=== PATIENT | female | born 1975 | race Caucasian/White ===

== ENCOUNTER 2016-12-27 06:22 | Day surgery (SDC) | payer BC ==
[~2016-12-27 06:22] MED LIST: Lactated Ringers 1,000 ML IV SCH
--- NOTE | 2016-12-27 07:03 | PCM.PREANE ---
Preanesthetic Assessment - Anesthesia/Transfusion/Family Hx Anesthesia History: Prior Anesthesia Without Reaction Transfusion History: No Prior Transfusion(s) - Physical Assessment O2 Sat by Pulse Oximetry: 97 Respiratory Rate: 16 Vital Signs: Last Vital Signs Temp 36.3 C 12/27/16 06:43 Pulse 63 12/27/16 06:43 Resp 16 12/27/16 06:43 BP 115/65 12/27/16 06:43 Pulse Ox 97 12/27/16 06:43 Height: 1.65 m Weight: 87.09 kg - Lab Values: Laboratory Last Values Urine HCG, Qual NEGATIVE (NEGATIVE) 12/27/16 06:23 - Allergies Allergies/Adverse Reactions: Allergies Allergy/AdvReac Type Severity Reaction Status Date / Time NSAIDS (Non-Steroidal Allergy gastric Verified 12/25/16 09:31 Anti-Inflamma bypass surgery bee stings Allergy Anaphylactic Uncoded 12/24/16 13:58 Shock PreAnesthesia Questionnaire HEENT History: Reports: Other (see below) Other HEENT History: wears glasses Respiratory History: Reports: Asthma Other Respiratory History: sports induced asthma Gastrointestinal History: Reports: GERD, Irritable bowel syndrome Genitourinary History: Reports: None, Renal calculus Other Genitourinary History: hx kidney stones 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: Musculoskeletal History: Reports: Osteoarthritis Psychiatric History: Reports: Anxiety, Depression Endocrine/Metabolic History: Reports: Obesity/BMI 30+ Dermatologic History: Reports: Psoriasis - Past Surgical History Head Surgeries/Procedures: Reports: None HEENT Surgical History: Reports: Myringotomy w tube(s) GI Surgical History: Reports: Bariatric procedure, Cholecystectomy, EGD Female Surgical History: Reports: Cystectomy (left overian cystectomy age 14) Musculoskeletal Surgical History: Reports: Arthroscopic knee, Knee replacement ( left knee TKR) - SUBSTANCE USE Smoking Status *Q: Former Smoker (quit ') Tobacco Use Within Last Twelve Months: No Recreational Drug Use History: No - HOME MEDS Home Medications: Home Meds Albuterol [Ventolin HFA] 2 puff INH ASDIRECTED PRN 12/24/16 [History] Calcium Carbonate/Vitamin D3 [Calcium 600 + Vit D 400 Softgl] 1 tab PO DAILY [History] Clobetasol [Clobetasol 0.05%] 1 applic TOP ASDIRECTED PRN 12/24/16 [History] DULoxetine [Cymbalta] 60 mg PO DAILY 12/24/16 [History] Diclofenac Sodium [Voltaren 1% Gel] 1 applic TOP ASDIRECTED PRN 12/24/16 [ History] Docusate Sodium [Colace] 1 tab PO BID PRN 12/24/16 [History] EPINEPHrine [Epipen 2-Dennis] 1 injection SUBCUT ASDIRECTED PRN 12/24/16 [History] Gabapentin [Neurontin] 900 tab PO BEDTIME 12/24/16 [History] Gluc 2KCl/Chondr/Sabine Hy/Hy Ac [Glucosamine & Chondroitin Cap] 1 tab PO ASDIRECTED 12/24/16 [History] Hydrocodone/Acetaminophen [Hydrocodon-Acetaminophen 5-325] 1 tab PO ASDIRECTED PRN 12/24/16 [History] Loteprednol Etabonate [Lotemax] 1 applic EYEBOTH ASDIRECTED PRN 12/24/16 [ History] Metoclopramide HCl 5 mg PO TID 12/24/16 [History] Multivitamin with Minerals [Hair, Skin and Nails] 1 tab PO DAILY 12/24/16 [ History] Omeprazole 20 mg PO DAILY 12/24/16 [History] Vitamin B Complex/Folic Acid [Super B Maxi Complex Caplet] 1 tab PO DAILY [History] buPROPion [Wellbutrin XL] 1 tab PO DAILY 12/24/16 [History] traMADol HCl [Tramadol HCl] 1 tab PO ASDIRECTED PRN 12/24/16 [History] - CURRENT (IN HOUSE) MEDS Current Meds: Current Medications Lactated Ringer's (Ringers, Lactated) 1,000 mls @ 125 mls/hr IV ASDIRECTED OTILIA Last Admin: 12/27/16 06:58 Dose: 125 mls/hr Preanesthetic Assessment - ANESTHESIA/TRANSFUSION/FAMILY HX Anesthesia/Transfusion History: Prior Anesthesia Type of Anesthesia Reaction: Denies: Allergy, Anesthesia Awareness, Excessive Somnolence, Excessive Nausea/Vomiting, Excessive Itching, Excessive Shivering, Malignant Hyperthermia, Malignant Hyperthermia, Family History, Pseudocholinesterase Deficiency, Pseudocholinesterase Deficiency, Family History of, Urinary Retention, Unknown, Other (see below) Family History of Anesthesia Reaction: No Other Intubation History Comment: no known problems - REVIEW OF SYSTEMS Constitutional: Reports: no symptoms 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 Respiratory: Reports: no symptoms Cardiovascular: Reports: no symptoms GI: Reports: no symptoms Other: Reports: None - PHYSICAL ASSESSMENT O2 Sat by Pulse Oximetry: 97 RR: 16 Vital Signs: Last Vital Signs Temp 36.3 C 12/27/16 06:43 Pulse 63 12/27/16 06:43 Resp 16 12/27/16 06:43 BP 115/65 12/27/16 06:43 Pulse Ox 97 12/27/16 06:43 Height: 1.65 m Weight: 87.09 kg ASA Class: 2 Mental Status: Alert & Oriented x3 Airway Class: Mallampati = 2 Dentition: Reports: Normal Dentition Thyro-Mental Finger Breadths: 3 Mouth Opening Finger Breadths: 3 ROM/Head Extension: Full Respiratory Status: lungs clear to auscultation bilaterally Cardiovascular Status: regular rate & rhythm, normal S1, S2, no murmur, blood pressure WNL - LAB Values: Laboratory Last Values Urine HCG, Qual NEGATIVE (NEGATIVE) 12/27/16 06:23 - ALLERGIES Allergies/Adverse Reactions: Allergies Allergy/AdvReac Type Severity Reaction Status Date / Time NSAIDS (Non-Steroidal Allergy gastric Verified 12/25/16 09:31 Anti-Inflamma bypass surgery bee stings Allergy Anaphylactic Uncoded 12/24/16 13:58 Shock - BLOOD Blood Available: No - ANESTHESIA PLAN Preop Beta Giana: No Anesthesia Type Planned: MAC - ACKNOWLEDGEMENTS Pt an Appropriate Candidate for the Planned Anesthesia: Yes Alternatives and Risks of Anesthesia Discussed w Pt/Guardian: Yes Pt/Guardian Understands and Agrees with Anesthesia Plan: Yes
[2016-12-27] MEDS ORDERED: Famotidine 20 MG/2 ML SDV IVPUSH ONE (07:19)
[2016-12-27] MEDS ORDERED: Bupivacaine 0.5% 10 ML SDV ONE (07:22)
[2016-12-27] MEDS ORDERED: Lidocaine 1% 20 ML MDV ONE (07:22)
[2016-12-27] MEDS ORDERED: Lidocaine 2% 5 ML SDV ONE (07:27)
[2016-12-27] MEDS ORDERED: Propofol 200 MG/20 ML SDV ONE ×2 (07:27→07:37)
[2016-12-27] MEDS ORDERED: Ondansetron 4 MG/2 ML SDV ONE (07:27)
[2016-12-27] MEDS ORDERED: fentaNYL 250 MCG/5 ML SDV ONE (07:27)
[2016-12-27] MEDS ORDERED: Midazolam 1 MG/ML 2 ML SDV ONE (07:27)
[2016-12-27] MEDS ORDERED: Morphine 10 MG/ML Syringe IVPUSH PRN (08:24)
[2016-12-27] MEDS ORDERED: Acetaminophen/HYDROcodone 325-5 MG Tab PO PRN (08:24)
--- NOTE | 2016-12-27 08:27 | PCM.OPNOTE ---
- General Post-Op/Procedure Note Date of Surgery/Procedure: 12/27/16 Operative Procedure(s): Excision recurrent 10 by a 19 mm right hip lesion Pre Op Diagnosis: Recurrent right hip lesion Post-Op Diagnosis: Same Anesthesia Technique: Local, MAC (ASA II) Primary Surgeon: Fortunato Alcala Fluid Replacement, Intraop: 1,000 EBL in mLs: 5 Condition: Good Free Text/Narrative:: Dictation [id number]
[2016-12-27] MEDS ORDERED: Lactated Ringers 1,000 ML IV SCH (08:30)
[2016-12-27] MEDS ORDERED: diphenhydrAMINE 50 MG/ML SDV IVPUSH ONE (08:43)
[2016-12-27 11:32] VITALS: BP 102/67
--- NOTE | 2016-12-27 12:09 | OR ---
SURGEON: Fortunato Alcala M.D. DATE OF PROCEDURE: 12/27/2016 OPERATION PERFORMED: Excision 10 x 19 mm recurrent right hip lesion with layered 7 cm closure. ANESTHESIA: Local MAC. ASA CLASSIFICATION: II. PREOPERATIVE DIAGNOSIS: Recurrent right hip lesion. POSTOPERATIVE DIAGNOSIS: Recurrent right hip lesion. ESTIMATED BLOOD LOSS: 5 mL. INTRAOPERATIVE FLUID REPLACEMENT: 1000 mL of crystalloid. DESCRIPTION OF PROCEDURE: The patient was taken to the operating room and placed on the operating table in the left lateral decubitus position. The patient was allowed to position herself. The surgical site had been marked prior to the patient entering the operating room. Time-out was called for appropriate identification of the patient and procedure. With the patient on the beanbag in the left lateral decubitus position, the beanbag was deflated. The surgical site was prepped with DuraPrep solution. Sterile drapes were applied. The skin incision was marked out and infiltrated with 10 mL of 1% Xylocaine and 10 mL of 0.5% Marcaine solution. Elliptical skin incision was carried out with full-thickness skin and subcutaneous excision. Bleeding sites were electrocoagulated. The 7 cm incision was then closed in 2 layers approximating the subcutaneous tissue with interrupted 3-0 Polysorb. The skin edges were reapproximated with subcuticular 4-0 Monocryl, reinforced with Steri-Strips. Sterile Tegaderm pad was placed as a dressing. Sponge, needle, and instrument counts were all correct. The patient tolerated the procedure well. She was returned to the transfer cart and taken to recovery room in satisfactory condition. JAY / ALEX /[id number]
== END 2016-12-27 11:00 | disposition home or self-care (01) ==
LOC: MW.SDS 06:22
PROVIDERS: ATTEND Surgery
PROC: 0JQL0ZZ Repair Right Upper Leg Subcutaneous Tissue and Fascia, Open Approach (ICD-10-PCS; principal; 2016-12-27)
DX: D23.71 Other benign neoplasm of skin of right lower limb, including hip (principal); F41.9 Anxiety disorder, unspecified; F32.9 Major depressive disorder, single episode, unspecified; K58.9 Irritable bowel syndrome, unspecified; E66.9 Obesity, unspecified; M19.90 Unspecified osteoarthritis, unspecified site; Z87.442 Personal history of urinary calculi; Z87.891 Personal history of nicotine dependence; Z88.6 Allergy status to analgesic agent; Z91.030 Bee allergy status; Z79.899 Other long term (current) drug therapy; Z98.84 Bariatric surgery status; Z96.652 Presence of left artificial knee joint; Z90.49 Acquired absence of other specified parts of digestive tract; Z98.890 Other specified postprocedural states; Z68.31 Body mass index [BMI] 31.0-31.9, adult
CPT/HCPCS: 11406; 12032; 81025; 88305; A9270; J1200; J2250; J2405; J3010; J7120; 00400; J2704

== ENCOUNTER 2017-03-04 15:53 | Emergency (ER) | payer BC ==
[2017-03-04] MEDS ORDERED: Ketorolac 60 MG/2 ML SDV IM ONE (16:55)
--- NOTE | 2017-03-04 17:03 | EDM.PDOC ---
ED HPI GENERAL MEDICAL PROBLEM - General Chief Complaint: Head Injury Stated Complaint: CONCUSION Time Seen by Provider: 03/04/17 16:00 Source of Information: Reports: Patient History Limitations: Reports: No Limitations - History of Present Illness INITIAL COMMENTS - FREE TEXT/NARRATIVE: History of present illness: [41 year-old female presenting status post fall. Patient fell approximately 5 days ago after consuming couple glasses of wine hitting her face. Followup with her primary care provider who determined she had fractured her nose, and her to an ENT who verbalized concern over some of her residual symptoms i.e. double vision, and low-grade nausea.] Review of systems: As per history of present illness and below otherwise all systems reviewed and negative. Past medical history: As per history of present illness and as reviewed below otherwise noncontributory. Surgical history: As per history of present illness and as reviewed below otherwise noncontributory. Social history: No reported history of drug or alcohol abuse. Family history: As per history of present illness and as reviewed below otherwise noncontributory. Physical exam: HEENT: Periorbital bruising, as well as bruising on the bridge of the nose and swelling of the nose which is consistent with the stated fracture. Otherwise normocephalic, pupils reactive, negative for conjunctival pallor or scleral icterus, mucous membranes moist, throat clear, neck supple, nontender, trachea midline. Lungs: Clear to auscultation, breath sounds equal bilaterally, chest nontender. Heart: S1S2, regular, negative for clicks, rubs, or JVD. Abdomen: Soft, nondistended, nontender. Negative for masses or hepatosplenomegaly. Negative for costovertebral tenderness. Pelvis: Stable nontender. Genitourinary: Deferred. Rectal: Deferred. Extremities: Atraumatic, negative for cords or calf pain. Neurovascular unremarkable. Neuro: Awake, alert, oriented. Cranial nerves II through XII unremarkable. Cerebellum unremarkable. Motor and sensory unremarkable throughout. Exam nonfocal. Diagnostics: [CT of the head] Therapeutics: [] Impression: [headache, low-grade nausea] Plan: [Followup with PCP] Definitive disposition and diagnosis as appropriate pending reevaluation and review of above. Head Pain Score (Numeric/FACES): 5 - Related Data Allergies Allergy/AdvReac Type Severity Reaction Status Date / Time NSAIDS (Non-Steroidal Allergy gastric Verified 03/04/17 16:11 Anti-Inflamma bypass surgery bee stings Allergy Anaphylactic Uncoded 03/04/17 16:11 Shock Home Meds: Home Meds Albuterol [Ventolin HFA] 2 puff INH ASDIRECTED PRN 12/24/16 [History] Calcium Carbonate/Vitamin D3 [Calcium 600 + Vit D 400 Softgl] 1 tab PO DAILY [History] Clobetasol [Clobetasol 0.05%] 1 applic TOP ASDIRECTED PRN 12/24/16 [History] DULoxetine [Cymbalta] 60 mg PO DAILY 12/24/16 [History] Diclofenac Sodium [Voltaren 1% Gel] 1 applic TOP ASDIRECTED PRN 12/24/16 [ History] Docusate Sodium [Colace] 1 tab PO BID PRN 12/24/16 [History] EPINEPHrine [Epipen 2-Dennis] 1 injection SUBCUT ASDIRECTED PRN 12/24/16 [History] Gabapentin [Neurontin] 900 tab PO BEDTIME 12/24/16 [History] Gluc 2KCl/Chondr/Sabine Hy/Hy Ac [Glucosamine & Chondroitin Cap] 1 tab PO ASDIRECTED 12/24/16 [History] Hydrocodone/Acetaminophen [Hydrocodon-Acetaminophen 5-325] 1 tab PO ASDIRECTED PRN 12/24/16 [History] Metoclopramide HCl 5 mg PO TID 12/24/16 [History] Multivitamin with Minerals [Hair, Skin and Nails] 1 tab PO DAILY 12/24/16 [ History] Omeprazole 20 mg PO DAILY 12/24/16 [History] Vitamin B Complex/Folic Acid [Super B Maxi Complex Caplet] 1 tab PO DAILY [History] buPROPion [Wellbutrin XL] 1 tab PO DAILY 12/24/16 [History] traMADol HCl [Tramadol HCl] 1 tab PO ASDIRECTED PRN 12/24/16 [History] Past Medical History - Past Health History Medical/Surgical History: Denies Medical/Surgical History HEENT History: Reports: Impaired Vision, Other (See Below) Other HEENT History: wears glasses Cardiovascular History: Reports: None Respiratory History: Reports: Asthma Other Respiratory History: sports induced asthma Gastrointestinal History: Reports: GERD, Irritable Bowel Syndrome Genitourinary History: Reports: None, Renal Calculus Other Genitourinary History: hx kidney stones 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: Musculoskeletal History: Reports: Osteoarthritis Neurological History: Reports: Concussion Psychiatric History: Reports: Anxiety, Depression Endocrine/Metabolic History: Reports: Obesity/BMI 30+ Hematologic History: Reports: None Immunologic History: Reports: None Oncologic (Cancer) History: Reports: None Dermatologic History: Reports: Psoriasis - Infectious Disease History Infectious Disease History: Reports: None - Past Surgical History Head Surgeries/Procedures: Reports: None HEENT Surgical History: Reports: Myringotomy w Tube(s) GI Surgical History: Reports: Bariatric Procedure, Cholecystectomy, EGD Musculoskeletal Surgical History: Reports: Arthroscopic Knee, Knee Replacement Social & Family History - Family History Family Medical History: Noncontributory - Tobacco Use Smoking Status *Q: Current Every Day Smoker Years of Tobacco use: 17 Packs/Tins Daily: 1 Month Tobacco Last Used: quit in 2008 - Caffeine Use Caffeine Use: Reports: Coffee - Recreational Drug Use Recreational Drug Use: No ED ROS GENERAL - Review of Systems Review Of Systems: See Below (History of present illness) ED EXAM, HEAD INJURY - Physical Exam Exam: See Below (See history of present illness) Course - Vital Signs Last Recorded V/S: Last Vital Signs Temp 36.2 C 03/04/17 16:08 Pulse 92 03/04/17 16:08 Resp 18 03/04/17 16:08 BP 144/79 H 03/04/17 16:08 Pulse Ox 95 03/04/17 16:08 - Orders/Labs/Meds Orders: Active Orders 24 hr Category Date Time Status Visual Acuity [Vision Test] [RC] ASDIRECTED Care 03/04/17 16:23 Active Head wo Cont [CT] Stat Exams 03/04/17 16:45 Ordered Departure - Departure Time of Disposition: 17:39 Disposition: Home, Self-Care 01 Condition: good Clinical Impression: Head and face pain, Nausea - Discharge Information Forms: ED Department Discharge Additional Instructions: The following information is given to patients seen in the emergency department who are being discharged to home. This information is to outline your options for follow-up care. We provide all patients seen in our emergency department with a follow-up referral. The need for follow-up, as well as the timing and circumstances, are variable depending upon the specifics of your emergency department visit. If you don't have a primary care physician on staff, we will provide you with a referral. We always advise you to contact your personal physician following an emergency department visit to inform them of the circumstance of the visit and for follow-up with them and/or the need for any referrals to a consulting specialist. The emergency department will also refer you to a specialist when appropriate. This referral assures that you have the opportunity for follow-up care with a specialist. All of these measure are taken in an effort to provide you with optimal care, which includes your follow-up. Under all circumstances we always encourage you to contact your private physician who remains a resource for coordinating your care. When calling for follow-up care, please make the office aware that this follow-up is from your recent emergency room visit. If for any reason you are refused follow-up, please contact the [facility] Emergency Department at and asked to speak to the emergency department charge nurse. Take nausea medicine as needed Followup with PCP 1-2 days Return to ED as needed as discussed - My Orders Last 24 Hours: My Active Orders 03/04/17 16:23 Visual Acuity [Vision Test] [RC] ASDIRECTED 03/04/17 16:45 Head wo Cont [CT] Stat - Assessment/Plan Last 24 Hours: My Active Orders 03/04/17 16:23 Visual Acuity [Vision Test] [RC] ASDIRECTED 03/04/17 16:45 Head wo Cont [CT] Stat
[2017-03-04 17:57] VITALS: BP 121/81
--- NOTE | 2017-03-05 11:46 | CT ---
EXAM DATE: 03/04/17 PATIENT'S AGE: 41 Patient: ROGER MONTIEL Facility: [place], [place] Site . Site : [id number] Study: CT Head [id number]/22/2017 5:23:45 PM Ordering Physician: Doctor Rutledge Final Report: Indication: Double vision. Fall. Comparison none. Technique: [place] CT of the head without contrast. Findings: Normal brain parenchymal morphology. No acute intracranial hemorrhage, acute infarct, mass effect, or fracture. No midline shift. No abnormal ventricular dilatation. Normal calvarium and skull base. Visualized paranasal sinuses and mastoid air cells are clear. Visualized orbits are unremarkable. Impression: 1. No acute intracranial abnormality. 2. Normal brain parenchymal morphology. Please note that all CT scans at this facility use dose modulation, iterative reconstruction, and/or weight-based dosing when appropriate to reduce radiation dose to as low as reasonably achievable. Dictated by Robb Epstein MD @ Mar 04 2017 5:34PM (Electronic Signature) Report Signed by Proxy. MTDD
== END 2017-03-04 17:46 | disposition home or self-care (01) ==
LOC: MW.ED 15:53
DX: R51 Headache (principal); R11.0 Nausea; Z88.6 Allergy status to analgesic agent; J45.909 Unspecified asthma, uncomplicated; K21.9 Gastro-esophageal reflux disease without esophagitis; F41.9 Anxiety disorder, unspecified; F32.9 Major depressive disorder, single episode, unspecified; E66.9 Obesity, unspecified; F17.210 Nicotine dependence, cigarettes, uncomplicated; Z91.030 Bee allergy status; Z79.899 Other long term (current) drug therapy; Z68.31 Body mass index [BMI] 31.0-31.9, adult; Z90.49 Acquired absence of other specified parts of digestive tract; Z96.659 Presence of unspecified artificial knee joint; W19.XXXA Unspecified fall, initial encounter
CPT/HCPCS: 70450; 96372; 99284; J1885; 99283

== ENCOUNTER 2017-07-02 08:14 | Observation (INO) | payer BC ==
[2017-07-01 19:14] LABS: CHLORIDE,CL 103 mmol/L (98-110); SODIUM,NA 140 mmol/L (136-146)
[~2017-07-02 08:14] MED LIST changes: -Lactated Ringers 1,000 ML IV SCH; +Lidocaine 2% 5 ML SDV ONE; +Midazolam 1 MG/ML 2 ML SDV ONE; +Neostigmine Methylsulfate 1 MG/ML 5 ML Syringe ONE; +Ondansetron 4 MG/2 ML SDV ONE; +Propofol 200 MG/20 ML SDV ONE; +Rocuronium 10 MG/ML 10 ML Syringe ONE; +fentaNYL 100 MCG/2 ML SDV ONE
[2017-07-02] MEDS ORDERED: Sodium Chloride 0.9% 10 ML Syringe FLUSH PRN (08:24)
[2017-07-02] MEDS ORDERED: Sodium Chloride 0.9% 2.5 ML Syringe FLUSH PRN (08:24)
[2017-07-02] MEDS ORDERED: Naloxone 0.4 MG/ML Syringe IVPUSH PRN (08:25)
[2017-07-02] MEDS: Lactated Ringers 1,000 ML IV SCH ×3 (08:42→23:57)
--- NOTE | 2017-07-02 08:55 | PCM.PREANE ---
Preanesthetic Assessment - Anesthesia/Transfusion/Family Hx Anesthesia History: Prior Anesthesia Without Reaction Family History of Anesthesia Reaction: No Transfusion History: No Prior Transfusion(s) - Review of Systems General: No Symptoms Pulmonary: No Symptoms Cardiovascular: No Symptoms Gastrointestinal: No Symptoms Neurological: No Symptoms Other: Reports: None - Physical Assessment NPO Status Date: 07/01/17 O2 Sat by Pulse Oximetry: 96 Respiratory Rate: 16 Vital Signs: Last Vital Signs Temp 36.4 C 07/02/17 08:40 Pulse 77 07/02/17 08:40 Resp 16 07/02/17 08:40 BP 120/71 07/02/17 08:40 Pulse Ox 96 07/02/17 08:40 Height: 1.65 m Weight: 82.1 kg ASA Class: 2 Mental Status: Alert & Oriented x3 Airway Class: Mallampati = 1 Dentition: Reports: Normal Dentition Lungs: Clear to Auscultation, Normal Respiratory Effort Cardiovascular: Regular Rate, Regular Rhythm, Murmurs (2/6 systolic) - Lab Values: Laboratory Last Values WBC 4.20 K/uL (4.0-11.0) 07/01/17 18:30 RBC 3.98 M/uL (4.30-5.90) L 07/01/17 18:30 Hgb 12.4 g/dL (12.0-16.0) 07/01/17 18:30 Hct 37.8 % (36.0-46.0) 07/01/17 18:30 MCV 95.0 fL (80.0-98.0) 07/01/17 18:30 MCH 31.2 pg (27.0-32.0) 07/01/17 18:30 MCHC 32.8 g/dL (31.0-37.0) 07/01/17 18:30 RDW Std Deviation 47.4 fl (28.0-62.0) 07/01/17 18:30 RDW Coeff of Baldo 14 % (11.0-15.0) 07/01/17 18:30 Plt Count 266 K/uL (150-400) 07/01/17 18:30 MPV 11.10 fL (7.40-12.00) 07/01/17 18:30 Nucleated RBC % 0.0 /100WBC 07/01/17 18:30 Nucleated RBCs # 0 K/uL 07/01/17 18:30 Sodium 140 mmol/L (136-146) 07/01/17 18:30 Potassium 4.6 mmol/L (3.5-5.1) 07/01/17 18:30 Chloride 103 mmol/L (98-110) 07/01/17 18:30 Carbon Dioxide 27 mmol/L (21-31) 07/01/17 18:30 BUN 16 mg/dL (6.0-23.0) 07/01/17 18:30 Creatinine 0.8 mg/dL (0.6-1.5) 07/01/17 18:30 Est Cr Clr Drug Dosing 84.11 mL/min 07/01/17 18:30 Estimated GFR (MDRD) > 60.0 ml/min 07/01/17 18:30 Glucose 78 mg/dL (60-110) 07/01/17 18:30 Calcium 9.6 mg/dL (8.8-10.8) 07/01/17 18:30 HCG, Qual NEGATIVE (NEG) 07/01/17 18:30 Blood Type A NEGATIVE 07/01/17 18:30 Antibody Screen NEGATIVE 07/01/17 18:30 - Allergies Allergies/Adverse Reactions: Allergies Allergy/AdvReac Type Severity Reaction Status Date / Time gluten Allergy Other Verified 07/01/17 16:28 milk Allergy Other Verified 07/01/17 16:28 NSAIDS (Non-Steroidal Allergy gastric Verified 03/04/17 16:11 Anti-Inflamma bypass surgery bee stings Allergy Anaphylactic Uncoded 03/04/17 16:11 Shock - Anesthesia Plan Pre-Op Medication Ordered: None - Acknowledgements Anesthesia Type Planned: General Anesthesia, Epidural Pt an Appropriate Candidate for the Planned Anesthesia: Yes Alternatives and Risks of Anesthesia Discussed w Pt/Guardian: Yes Pt/Guardian Understands and Agrees with Anesthesia Plan: Yes Additional Comments: PMH: RAD, PCOS, GERD, chronic pain. Plan GA for prinary anesthetic, epidural for post op analgesia, (have reserved ICU bed for post op epidural/pain management. 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: Reports: Back Pain, Chronic, Fibromyalgia, Osteoarthritis Neurological History: Reports: Concussion, Other (See Below) Other Neuro History: hx of motion sickness Psychiatric History: Reports: Anxiety, Depression Endocrine/Metabolic History: Reports: Obesity/BMI 30+ Other Endocrine/Metabolic History: 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 (blood sugar goes down when she eats) Hematologic History: Reports: None Immunologic History: Reports: None Oncologic (Cancer) History: Reports: None Dermatologic History: Reports: Psoriasis - Infectious Disease History Infectious Disease History: Reports: None - Past Surgical History Head Surgeries/Procedures: Reports: None HEENT Surgical History: Reports: Myringotomy w Tube(s) GI Surgical History: Reports: Bariatric Procedure, Cholecystectomy, EGD Female Surgical History: Reports: Cystectomy Musculoskeletal Surgical History: Reports: Arthroscopic Knee, Knee Replacement - SUBSTANCE USE Smoking Status *Q: Current Every Day Smoker Tobacco Use Within Last Twelve Months: Cigarettes Recreational Drug Use History: No - HOME MEDS Home Medications: Home Meds Calcium Carbonate/Vitamin D3 [Calcium 600 + Vit D 400 Softgl] 1 tab PO DAILY [History] Clobetasol [Clobetasol 0.05%] 1 applic TOP BID PRN 12/24/16 [History] DULoxetine [Cymbalta] 60 mg PO DAILY 12/24/16 [History] Diclofenac Sodium [Voltaren 1% Gel] 1 applic TOP QID 12/24/16 [History] Docusate Sodium [Colace] 1 tab PO BID PRN 12/24/16 [History] EPINEPHrine [Epipen 2-Dennis] 1 injection SUBCUT ASDIRECTED PRN 12/24/16 [History] Gabapentin [Neurontin] 900 tab PO BEDTIME 12/24/16 [History] Metoclopramide HCl 5 mg PO TID 12/24/16 [History] Multivitamin with Minerals [Hair, Skin and Nails] 1 tab PO DAILY 12/24/16 [ History] Omeprazole 20 mg PO DAILY 12/24/16 [History] Vitamin B Complex/Folic Acid [Super B Maxi Complex Caplet] 1 tab PO DAILY [History] buPROPion [Wellbutrin XL] 1 tab PO DAILY 12/24/16 [History] Acarbose 100 mg PO TID 07/01/17 [History] Acetaminophen [Tylenol] 650 mg PO ASDIRECTED PRN 07/01/17 [History] Fluconazole [Diflucan] 150 mg PO BID 07/01/17 [History] Gabapentin [Neurontin] 300 mg PO BID 07/01/17 [History] Loratadine [Claritin] 10 mg PO DAILY 07/01/17 [History] Metronidazole [IJD: metroNIDAZOLE] 500 mg PO BID 07/01/17 [History] Tranexamic Acid [Lysteda] 1,300 mg PO BID 07/01/17 [History] oxyCODONE HCl/Acetaminophen [Endocet 7.5-325 mg Tablet] 1 tab PO BID 07/01/17 [ History] oxyCODONE HCl/Acetaminophen [oxyCODONE-Acetaminophen 5-325] 1 tab PO ACLUNCH [History] - CURRENT (IN HOUSE) MEDS Current Meds: Current Medications Lactated Ringer's (Ringers, Lactated) 1,000 mls @ 125 mls/hr IV ASDIRECTED OTILIA Last Admin: 07/02/17 08:42 Dose: 125 mls/hr Naloxone HCl (Narcan) 0.1 mg IVPUSH ONETIME PRN PRN Reason: Respiratory Depression Sodium Chloride (Saline Flush) 10 ml FLUSH ASDIRECTED PRN PRN Reason: Keep Vein Open Sodium Chloride (Saline Flush) 2.5 ml FLUSH ASDIRECTED PRN PRN Reason: Keep Vein Open Discontinued Medications Fentanyl (Sublimaze) Confirm Administered Dose 200 mcg .ROUTE .STK-MED ONE Stop: 07/02/17 07:27 Glycopyrrolate () Confirm Administered Dose 1 mg .ROUTE .STK-MED ONE Stop: 07/02/17 07:27 Lidocaine (Xylocaine-Mpf 2%) Confirm Administered Dose 5 ml .ROUTE .STK-MED ONE Stop: 07/02/17 07:27 Midazolam HCl (Versed 1 Mg/Ml) Confirm Administered Dose 2 mg .ROUTE .STK-MED ONE Stop: 07/02/17 07:27 Neostigmine Methylsulfate (Neostigmine) Confirm Administered Dose 5 mg .ROUTE .STK-MED ONE Stop: 07/02/17 07:27 Ondansetron HCl (Zofran) Confirm Administered Dose 4 mg .ROUTE .STK-MED ONE Stop: 07/02/17 07:27 Propofol (Diprivan 20 Ml) Confirm Administered Dose 200 mg .ROUTE .STK-MED ONE Stop: 07/02/17 07:27 Rocuronium [place] (Zemuron) Confirm Administered Dose 100 mg .ROUTE .STK-MED ONE Stop: 07/02/17 07:27
[2017-07-02] MEDS ORDERED: Acetaminophen 1,000 MG in Premix Bag 1 BAG IV ONE (09:40)
[2017-07-02] MEDS ORDERED: fentaNYL 100 MCG/2 ML SDV ONE ×3 (10:49→12:51)
[2017-07-02] MEDS ORDERED: Fluorescein 5 ML Vial ONE (10:51)
[2017-07-02] MEDS ORDERED: Furosemide 40 MG/4 ML VIAL ONE (10:51)
[2017-07-02] MEDS ORDERED: Dexamethasone 4 MG/ML 5 ML MDV ONE (10:54)
[2017-07-02] MEDS ORDERED: Ropivacaine HCl/PF 200 MG in Premix Bag 1 BAG EPIDUR SCH (11:00)
--- NOTE | 2017-07-02 11:13 | PCM.SN ---
- Free Text/Narrative Note: Procedure Note Due to the patients complicated PO pain medication regimen for her chronic pain , epidural placement was desired for post-operative pain management for the the 16-24 hrs. The patient and Dr Pablo are in agreement with this plan. The patient was brought to the operating room and placed in sitting position on the operative table. Betadine prep x 3 was performed. [address]rape was place and L2- 3 interspace was identified by palpation. 1% Lidocaine was infiltrated SubQ. 17g Tuohy needle was then introduced until satisfactory loss of resistance was obtained at 8CM. Epidural catheter was then threaded through the needle to a depth of 20cm. The Tuohy needle was then removed and the catheter left in place at 20cm. Test dose was administered with 1.5% Lidocaine with 1:200,000 Epi. Patient denied any numbness and/or tingling. VS remained unchanged throughout this process. No RBC or CSF was noted on aspiration. Catheter was then secured with tape and tegaderm. The patient was then placed supine for induction of GETA. The epidural will not be dosed until the patient is in PACU - as this is for Post Op pain control only.
[2017-07-02] MEDS ORDERED: Ropivacaine 0.2% 2 MG/ML 20 ML SDV ONE (11:22)
[2017-07-02] MEDS ORDERED: Promethazine 25 MG/ML SDV IM PRN (12:21)
[2017-07-02] MEDS ORDERED: Ondansetron 4 MG/2 ML SDV IVPUSH PRN (12:21)
[2017-07-02] MEDS ORDERED: Ketorolac 30 MG/ML SDV IVPUSH ONE (12:21)
[2017-07-02] MEDS ORDERED: Bupivacaine 0.25% 10 ML SDV ONE (12:25)
--- NOTE | 2017-07-02 12:34 | PCM.OPNOTE ---
- General Post-Op/Procedure Note Date of Surgery/Procedure: 07/02/17 Operative Procedure(s): TVH, salpingectomy, cystoscopy Findings: 5 cm uterine fibroid, patent ureters, normal appearing fallopian tubes and ovaries Pre Op Diagnosis: Menorrhagia, pelvic pain, 5cm uterine fibroid Post-Op Diagnosis: same Anesthesia Technique: General ET Tube Primary Surgeon: Caroline Pablo Secondary Surgeon: Aramis Abdalla Tracer Powder Blender: Vidal Schumacher Pathology: Uterus and fallopian tubes sent Fluid Replacement, Intraop: 2,300 EBL in mLs: 300 Complications: None Known Condition: Good
[2017-07-02] MEDS: fentaNYL 100 MCG/2 ML SDV IVPUSH PRN ×3 (12:39→16:01)
[2017-07-02] MEDS ORDERED: Bupivacaine 0.5% 10 ML SDV ONE (12:56)
[2017-07-02] MEDS ORDERED: BUPIVACAINE 0.5% EPIDUR SCH (13:00)
[2017-07-02] MEDS ORDERED: FENTANYL EPIDUR SCH (13:00)
[2017-07-02] MEDS ORDERED: SODIUM CHLORIDE 0.9% EPIDUR SCH (13:00)
[2017-07-02] MEDS: Metoclopramide 5 MG Tab PO SCH ×2 (15:10→21:26)
[2017-07-02] MEDS ORDERED: fentaNYL 100 MCG/2 ML SDV IVPUSH PRN (15:30)
--- NOTE | 2017-07-02 15:59 | PCM.SN ---
- Free Text/Narrative Note: patient is stable. left side if pain free, but right side has 6/10 pain, uncontrolled, tolerating po, nausea resolved. Continue postop care, will coordinate pain management with anesthesia.
[2017-07-02] MEDS: Gabapentin 300 MG Cap PO SCH ×2 (16:22→21:25)
[2017-07-02] MEDS: Acarbose 100 MG PO SCH ×2 (17:55→23:05)
--- NOTE | 2017-07-02 18:25 | PCM.SN ---
- Free Text/Narrative Note: Anesthesia Note: New bag of 0.125% bupiv + 100mcg/100mL NS for epidural with continued settings of 8mL/hr + 5mL bolus q 10 min PRN. Pt states feeling better after a bolus. VSS.
--- NOTE | 2017-07-02 18:58 | OR ---
SURGEON: Caroline Pablo M.D. DATE OF PROCEDURE: 07/02/2017 PREOPERATIVE DIAGNOSES: Menorrhagia, uterine fibroids, pelvic pain. POSTOPERATIVE DIAGNOSES: Menorrhagia, uterine fibroids, pelvic pain. PROCEDURE: Total vaginal hysterectomy with bilateral salpingectomy and cystoscopy. MINE BOSS: 1. Scarf And Anneal Operator: Aramis Abdalla MD. 2. Second Protection Specialist: Vidal Ram MS-4. ANESTHESIA: General endotracheal with epidural for postop pain control. ESTIMATED BLOOD LOSS: 350 mL. FLUIDS: 2300 mL crystalloid. FINDINGS: Second-degree uterine prolapse. There was a 5 cm fibroid on the right side of the uterus. Normal-appearing uterus, normal-appearing tubes and ovaries. Upon cystoscopy, there was normal-appearing bladder mucosa. No evidence of any trauma to the bladder mucosa. Bilateral ureteral orifices were identified and there was copious flow of bright green urine after IV fluorescein had been given. COMPLICATIONS: None known. DISPOSITION: Stable to recovery. BRIEF HISTORY: This is a 41-year-old female. She presented with menorrhagia as well as dyspareunia. Evaluation revealed a 4 to 5 cm fibroid on the anterior uterus. Saline-enhanced ultrasound did not confirm that this was submucosal. She was given Lysteda for management of her heavy bleeding. This did not help. She was offered all options for management of the fibroid including myomectomy and Interventional Radiology procedure such as fibroid embolization or radiofrequency ablation; however, she declines both of these particularly due to the fact that she has completed childbearing and she is suffering from pain in addition to the bleeding. She desires to proceed with hysterectomy. The uterus was mobile. The fibroid was not in a position, where it would significantly hinder of vaginal hysterectomy. She therefore desires to proceed with a total vaginal hysterectomy with possible bilateral salpingectomy for risk reduction and cystoscopy with risks reviewed including bleeding, infection, injury to bowel, bladder, blood vessels, or other organs, risk of thromboembolic event, risk of change in sexual function, risk of anesthesia. Understanding all these risks, she does desire to proceed. DESCRIPTION OF PROCEDURE: With the patient in dorsal lithotomy position under adequate general endotracheal anesthesia, the perineum and vagina were prepped with Betadine and draped in the usual fashion for vaginal surgery. After an appropriate time-out was held with SCDs in place having received 2 g of Ancef IV, a bimanual examination revealed a mobile 12 week size uterus with a fibroid off to the right side. A weighted speculum was placed in the vagina. A vaginal sidewall retractors were placed. The cervix was grasped with a Gene tenaculum. The cervix was circumscribed with electrocautery. The vaginal mucosa was retracted away from the cervix. The posterior cul-de-sac was entered sharply and the Poornima weighted speculum was placed posteriorly. The anterior cul-de-sac was dissected. I was able to palpate the peritoneal reflection, however, due to the position of the fibroid, I was unable to enter immediately therefore the uterosacral ligament pedicles were doubly clamped with Colin clamps, cut, and doubly ligated using 2-0 Polysorb. The 2nd pedicle was taken on the right and the left, again these were doubly clamped, cut, and ligated with a Colin ligature of 2-0 Polysorb. I was then able to bring my finger posteriorly to the anterior reflection and entered the anterior peritoneum without difficulty. The right angle retractor was placed into the anterior peritoneum and two additional pedicles were taken on the right and the left, also doubly clamped, cut, and ligated. The uterus was then delivered vaginally. The retained utero-ovarian ligaments were inspected. The ovaries and tubes appeared normal. The distal fimbria of the tube were identified bilaterally and therefore, I did decide to proceed with the salpingectomy. These tubes were grasped with a [place] clamp. The mesosalpinx and the tubal uterine ligament were crossclamped using a curved Z clamp, cut, and ligated using a Colin ligature of 2-0 Polysorb. This being completed, the tubes were passed off the table. The pedicles were carefully inspected. The upper pedicles were inspected and were completely hemostatic. Therefore, the utero-ovarian pedicle was released. There was a small amount of bleeding on the left lower cardinal ligament pedicle which was re-clamped and ligated using a Colin ligature of 2-0 Polysorb. With this, all the pedicles were carefully inspected and were completely hemostatic. The retained uterosacral ligatures were ligated to the vaginal apices bilaterally. The vaginal mucosa was closed with a running lock suture of 0 Polysorb. After IV fluorescein had been given along with Lasix, cystoscopy was performed using normal saline as a distending medium. There was copious flow of bright green urine from bilateral ureteral orifices. There was also no evidence of any trauma to the bladder mucosa. The bladder was then drained. Tejada catheter was placed. The vagina was again inspected, it was hemostatic. Final sponge, needle, and instrument counts were reported as correct. There were no known complications. The patient was transferred to recovery in good condition. EDWIN / ALEX /[id number]
[2017-07-02] MEDS: Ketorolac 30 MG/ML SDV IVPUSH PRN (19:43)
[2017-07-02] MEDS: Morphine 4 MG/ML Syringe IVPUSH PRN ×2 (19:44→21:59)
[2017-07-02] MEDS ORDERED: Gabapentin 300 MG Cap PO SCH (21:00)
--- NOTE | 2017-07-02 23:31 | PCM.SN ---
- Free Text/Narrative Note: Present when pt's requested assistance as pt's eye was drooping. Upon exam pt appears to have ptosis to the R eye. 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 After more discussion, pt did divulge that she had fallen asleep on her right side, slumped over. Most probably she is experiencing slight horners syndrome from the epidural getting slightly higher due to her positioning. Pt denies any signs of toxicity including metallic taste or ringing in her ears. VSS. Pt has taken a number of boluses on top of her basal rate. Pt understands it is in her best interest for us to decrease the number of boluses to avoid further complications. Basal rate remains at 8mL/hr, Bolus now 5mL q 20min PRN with a Max of 18mL/hr. Reexamined pt after 15 min and drooping was beginning to resolve as pt was now sitting straight up. and daughter at bedside agree she is looking better - will continue to monitor and re-educated on signs of toxicity to call right away.
--- NOTE | 2017-07-02 23:38 | PCM.SN ---
- Free Text/Narrative Note: 2335 - new epidural bag with same settings as previous note. Pt's ptosis has resolved almost completely. VS remain stable.
[2017-07-03] MEDS: Morphine 4 MG/ML Syringe IVPUSH PRN ×3 (00:52→06:10)
[2017-07-03] MEDS: Ketorolac 30 MG/ML SDV IVPUSH PRN (02:17)
[2017-07-03 05:02] LABS: CHLORIDE,CL 100 mmol/L (98-110); SODIUM,NA 131 mmol/L (136-146)
[2017-07-03] MEDS: Gabapentin 300 MG Cap PO SCH ×3 (06:10→21:52)
[2017-07-03] MEDS: Metoclopramide 5 MG Tab PO SCH ×3 (06:10→18:04)
--- NOTE | 2017-07-03 06:56 | PCM.SN ---
- Free Text/Narrative Note: Pt did well through the night. It was noted that she had some facial droopiness that was attributed to the epidural level getting high. Pt denied any other distress. VSS. Pain was well controlled otherwise. Will stop epidural infusion at this time and attempt transition to PO with IV for breakthrough. 5g drop in HgB is noted and mild hyponatremia this AM.
[2017-07-03] MEDS: Acarbose 100 MG PO SCH ×3 (07:29→18:04)
[2017-07-03] MEDS: Omeprazole 20 MG Cap.CR PO SCH ×2 (07:30→09:30)
--- NOTE | 2017-07-03 08:32 | PCM.PN ---
<Vidal Schumacher - Last Filed: 07/03/17 08:26> - General Info Date of Service: 07/03/17 Admission Dx/Problem (Free Text): Postop TVH, salpingectomy Subjective Update: Pt's pain control has improved. The epidural has been removed. Pt tolerating diet well. [place] in place. Pt has been having double vision since yesterday evening. Denies weakness, confusion, problems speaking. Denies nausea or vomiting. Denies fever, chills, shortness of breath, chest pain, calf pain. Functional Status: Reports: Pain Controlled, Tolerating Diet, Incentive Spirometry - Review of Systems General: Reports: No Symptoms Pulmonary: Reports: No Symptoms Cardiovascular: Reports: No Symptoms Gastrointestinal: Reports: No Symptoms Genitourinary: Reports: No Symptoms Musculoskeletal: Reports: No Symptoms Neurological: Reports: No Symptoms - Patient Data Vitals - Most Recent: Last Vital Signs Temp 37.0 C 07/03/17 03:50 Pulse 77 07/03/17 06:50 Resp 17 07/03/17 03:50 BP 111/55 L 07/03/17 06:50 Pulse Ox 100 07/03/17 06:50 Weight - Most Recent: 82.1 kg I&O - Last 24 Hours: Intake & Output 07/02/17 07/03/17 07/03/17 22:59 06:59 14:59 Intake Total 2400 Output Total 300 525 Balance -300 1875 Lab Results Last 24 Hours: Laboratory Results - last 24 hr 07/03/17 07/03/17 Range/Units 04:34 04:34 WBC 5.70 (4.0-11.0) K/uL RBC 2.41 L (4.30-5.90) M/uL Hgb 7.3 L (12.0-16.0) g/dL Hct 22.6 L (36.0-46.0) % MCV 93.8 (80.0-98.0) fL MCH 30.3 (27.0-32.0) pg MCHC 32.3 (31.0-37.0) g/dL RDW Std Deviation 47.2 (28.0-62.0) fl RDW Coeff of Baldo 14 (11.0-15.0) % Plt Count 229 (150-400) K/uL MPV 11.00 (7.40-12.00) fL Neut % (Auto) 58.6 (48.0-80.0) % Lymph % (Auto) 26.0 (16.0-40.0) % [place] % (Auto) 11.4 (0.0-15.0) % Eos % (Auto) 3.5 (0.0-7.0) % Baso % (Auto) 0.5 (0.0-1.5) % Neut # (Auto) 3.3 (1.4-5.7) K/uL Lymph # (Auto) 1.5 (0.6-2.4) K/uL [place] # (Auto) 0.7 (0.0-0.8) K/uL Eos # (Auto) 0.2 (0.0-0.7) K/uL Baso # (Auto) 0.0 (0.0-0.1) K/uL Nucleated RBC % 0.0 /100WBC Nucleated RBCs # 0 K/uL Sodium 131 L (136-146) mmol/L Potassium 4.1 (3.5-5.1) mmol/L Chloride 100 (98-110) mmol/L Carbon Dioxide 26 (21-31) mmol/L BUN 10 (6.0-23.0) mg/dL Creatinine 0.7 (0.6-1.5) mg/dL Est Cr Clr Drug Dosing 96.13 mL/min Estimated GFR (MDRD) > 60.0 ml/min Glucose 108 (60-110) mg/dL Calcium 8.0 L (8.8-10.8) mg/dL Med Orders - Current: Current Medications Bupropion HCl (Wellbutrin Xl) 150 mg PO DAILY [facility] Duloxetine HCl (Cymbalta) 60 mg PO DAILY [facility] Fentanyl (Sublimaze) 50 mcg IVPUSH .Q1HR PRN PRN Reason: Breakthrough Pain Last Admin: 07/02/17 16:00 Dose: 50 mcg Gabapentin (Neurontin) 900 mg PO BEDTIME [facility] Last Admin: 07/02/17 21:25 Dose: 900 mg Gabapentin (Neurontin) 600 mg PO BID@0600,1200 [facility] Last Admin: 07/03/17 06:10 Dose: 600 mg Lactated Ringer's (Ringers, Lactated) 1,000 mls @ 125 mls/hr IV ASDIRECTED [facility] Last Admin: 07/02/17 23:57 Dose: 125 mls/hr Ropivacaine 200 mg/ Premix 100 mls @ 0 mls/hr EPIDUR ASDIRECTED [facility] Bupivacaine HCl 25 ml/Fentanyl 100 mcg/ Sodium Chloride 100 mls @ 2 mls/hr EPIDUR ASDIRECTED [facility] Ketorolac Tromethamine (Toradol) 30 mg IVPUSH Q6H PRN PRN Reason: Pain (severe 7-10) Stop: 07/07/17 12:21 Last Admin: 07/03/17 02:17 Dose: 30 mg Loratadine (Claritin) 10 mg PO DAILY [facility] Metoclopramide HCl (Reglan) 5 mg PO TID [facility] Last Admin: 07/03/17 06:10 Dose: 5 mg Morphine Sulfate (Morphine) 4 mg IVPUSH Q2H PRN PRN Reason: Pain (severe 7-10) Last Admin: 07/03/17 06:10 Dose: 4 mg Naloxone HCl (Narcan) 0.1 mg IVPUSH ONETIME PRN PRN Reason: Respiratory Depression Omeprazole (Omeprazole) 20 mg PO DAILY [facility] Last Admin: 07/03/17 07:30 Dose: 20 mg Ondansetron HCl (Zofran) 4 mg IVPUSH Q6H PRN PRN Reason: Nausea/Vomiting Last Admin: 07/02/17 18:17 Dose: 4 mg Oxycodone/Acetaminophen (Percocet 325-5 Mg) 2 tab PO Q4H PRN PRN Reason: Pain (moderate 4-6) Acarbose 100 Mg 1 each PO TID [facility] Last Admin: 07/03/17 07:29 Dose: 1 each Promethazine HCl (Phenergan) 25 mg IM Q6H PRN PRN Reason: Nausea/Vomiting Sodium Chloride (Saline Flush) 10 ml FLUSH ASDIRECTED PRN PRN Reason: Keep Vein Open Sodium Chloride (Saline Flush) 2.5 ml FLUSH ASDIRECTED PRN PRN Reason: Keep Vein Open Discontinued Medications Bupivacaine HCl (Sensorcaine-Mpf 0.25%) Confirm Administered Dose 10 ml .ROUTE .STK-MED ONE Stop: 07/02/17 12:26 Bupivacaine HCl (Sensorcaine-Mpf 0.5%) Confirm Administered Dose 10 ml .ROUTE .STK-MED ONE Stop: 07/02/17 12:57 Dexamethasone (Dexamethasone) Confirm Administered Dose 20 mg .ROUTE .STK-MED ONE Stop: 07/02/17 10:55 Fentanyl (Sublimaze) Confirm Administered Dose 200 mcg .ROUTE .STK-MED ONE Stop: 07/02/17 07:27 Fentanyl (Sublimaze) Confirm Administered Dose 100 mcg .ROUTE .STK-MED ONE Stop: 07/02/17 10:50 Fentanyl (Sublimaze) Confirm Administered Dose 100 mcg .ROUTE .STK-MED ONE Stop: 07/02/17 12:32 Last Admin: 07/02/17 15:42 Dose: Not Given Fentanyl (Sublimaze) 50 mcg IVPUSH Q5M PRN PRN Reason: Pain (severe 7-10) Stop: 07/03/17 12:34 Last Admin: 07/02/17 12:45 Dose: 50 mcg Fentanyl (Sublimaze) Confirm Administered Dose 100 mcg .ROUTE .STK-MED ONE Stop: 07/02/17 12:52 Fluorescein Sodium (Ak-Fluor) Confirm Administered Dose 5 ml .ROUTE .STK-MED ONE Stop: 07/02/17 10:52 Furosemide (Lasix) Confirm Administered Dose 40 mg .ROUTE .STK-MED ONE Stop: 07/02/17 10:52 Gabapentin (Neurontin) 300 mg PO BID [facility] Glycopyrrolate () Confirm Administered Dose 1 mg .ROUTE .STK-MED ONE Stop: 07/02/17 07:27 Acetaminophen 1,000 mg/ Premix 100 mls @ 400 mls/hr IV NOW ONE Stop: 07/02/17 09:54 Last Admin: 07/02/17 09:50 Dose: 400 mls/hr Ketorolac Tromethamine (Toradol) 30 mg IVPUSH ONETIME ONE Stop: 07/02/17 12:22 Last Admin: 07/02/17 12:38 Dose: 30 mg Lidocaine (Xylocaine-Mpf 2%) Confirm Administered Dose 5 ml .ROUTE .STK-MED ONE Stop: 07/02/17 07:27 Midazolam HCl (Versed 1 Mg/Ml) Confirm Administered Dose 2 mg .ROUTE .STK-MED ONE Stop: 07/02/17 07:27 Neostigmine Methylsulfate (Neostigmine) Confirm Administered Dose 5 mg .ROUTE .STK-MED ONE Stop: 07/02/17 07:27 Ondansetron HCl (Zofran) Confirm Administered Dose 4 mg .ROUTE .STK-MED ONE Stop: 07/02/17 07:27 Propofol (Diprivan 20 Ml) Confirm Administered Dose 200 mg .ROUTE .STK-MED ONE Stop: 07/02/17 07:27 Rocuronium [place] (Zemuron) Confirm Administered Dose 100 mg .ROUTE .STK-MED ONE Stop: 07/02/17 07:27 Ropivacaine (Naropin 0.2%) Confirm Administered Dose 20 ml .ROUTE .STK-MED ONE Stop: 07/02/17 11:23 Last Admin: 07/02/17 15:42 Dose: Not Given - Exam General: Alert, Oriented HEENT: Pupils Equal, Pupils Reactive (Righ eyelid drooping, EOM intact but asymetric) Lungs: Clear to Auscultation, Normal Respiratory Effort Cardiovascular: Regular Rate, Regular Rhythm GI/Abdominal Exam: Normal Bowel Sounds, Soft, Non-Tender, No Organomegaly, No Distention, No Abnormal Bruit, No Mass, Pelvis Stable Extremities: Normal Inspection, Normal Range of Motion, Non-Tender, No Pedal Edema, Normal Capillary Refill Neurological: No New Focal Deficit, Normal Speech, Normal Tone, Strength Equal Bilateral, Sensation Intact, Cranial Nerves Intact - Problem List & Annotations (1) Post-op pain SNOMED Code(s): 497590303 Code(s): G89.18 - OTHER ACUTE POSTPROCEDURAL PAIN Status: Acute Current Visit: Yes (2) Anemia SNOMED Code(s): 380465433 Code(s): D64.9 - ANEMIA, UNSPECIFIED Status: Acute Current Visit: Yes QualifierTitle: Anemia type: other cause Other causes of anemia: acute posthemorrhagic Qualified Code(s): D62 - Acute posthemorrhagic anemia - Problem List Review Problem List Initiated/Reviewed/Updated: Yes - Assessment Assessment:: TVH, Salpingectomy POD #1 Pain has been well controlled with epidural and IV pain medications Pt tolerating diet well Anemia Pt is currently asymptomatic but has not gotten out of bed - Plan Plan:: Continue routine cares. Discontinue [place] catheter and IV pain medications. Start oral Toradol and percocet. Check H/H at 1400. Support and encourage frequent ambulation. Pt's anemia and pain management will be reassessed this afternoon. The drop in hemoglobin is more than expected for the amount reported lost during surgery. Pt has had minimal bleeding since surgery. It is possible there was more intraoperative bleeding than reported, there was some internal bleeding postop, the hemoglobin has been diluted, or a combination of the three. Will start patient on oral iron, and transfuse whole blood if hemogoblin < 6.0. <Caroline Pablo - Last Filed: 07/03/17 10:36> - Patient Data Vitals - Most Recent: Last Vital Signs Temp 37.0 C 07/03/17 03:50 Pulse 77 07/03/17 06:50 Resp 17 07/03/17 03:50 BP 111/55 L 07/03/17 06:50 Pulse Ox 100 07/03/17 06:50 I&O - Last 24 Hours: Intake & Output 07/02/17 07/03/17 07/03/17 22:59 06:59 14:59 Intake Total 2400 Output Total 300 525 Balance -300 1875 Lab Results Last 24 Hours: Laboratory Results - last 24 hr 07/03/17 07/03/17 Range/Units 04:34 04:34 WBC 5.70 (4.0-11.0) K/uL RBC 2.41 L (4.30-5.90) M/uL Hgb 7.3 L (12.0-16.0) g/dL Hct 22.6 L (36.0-46.0) % MCV 93.8 (80.0-98.0) fL MCH 30.3 (27.0-32.0) pg MCHC 32.3 (31.0-37.0) g/dL RDW Std Deviation 47.2 (28.0-62.0) fl RDW Coeff of Baldo 14 (11.0-15.0) % Plt Count 229 (150-400) K/uL MPV 11.00 (7.40-12.00) fL Neut % (Auto) 58.6 (48.0-80.0) % Lymph % (Auto) 26.0 (16.0-40.0) % [place] % (Auto) 11.4 (0.0-15.0) % Eos % (Auto) 3.5 (0.0-7.0) % Baso % (Auto) 0.5 (0.0-1.5) % Neut # (Auto) 3.3 (1.4-5.7) K/uL Lymph # (Auto) 1.5 (0.6-2.4) K/uL [place] # (Auto) 0.7 (0.0-0.8) K/uL Eos # (Auto) 0.2 (0.0-0.7) K/uL Baso # (Auto) 0.0 (0.0-0.1) K/uL Nucleated RBC % 0.0 /100WBC Nucleated RBCs # 0 K/uL Sodium 131 L (136-146) mmol/L Potassium 4.1 (3.5-5.1) mmol/L Chloride 100 (98-110) mmol/L Carbon Dioxide 26 (21-31) mmol/L BUN 10 (6.0-23.0) mg/dL Creatinine 0.7 (0.6-1.5) mg/dL Est Cr Clr Drug Dosing 96.13 mL/min Estimated GFR (MDRD) > 60.0 ml/min Glucose 108 (60-110) mg/dL Calcium 8.0 L (8.8-10.8) mg/dL Med Orders - Current: Current Medications Bupropion HCl (Wellbutrin Xl) 150 mg PO DAILY [facility] Last Admin: 07/03/17 09:21 Dose: 150 mg Docusate Sodium (Colace) 100 mg PO BID PRN PRN Reason: Constipation Last Admin: 07/03/17 09:05 Dose: 100 mg Duloxetine HCl (Cymbalta) 60 mg PO DAILY [facility] Last Admin: 07/03/17 09:21 Dose: 60 mg Fentanyl (Sublimaze) 50 mcg IVPUSH .Q1HR PRN PRN Reason: Breakthrough Pain Last Admin: 07/02/17 16:00 Dose: 50 mcg Gabapentin (Neurontin) 900 mg PO BEDTIME [facility] Last Admin: 07/02/17 21:25 Dose: 900 mg Gabapentin (Neurontin) 600 mg PO BID@0600,1200 [facility] Last Admin: 07/03/17 06:10 Dose: 600 mg Lactated Ringer's (Ringers, Lactated) 1,000 mls @ 125 mls/hr IV ASDIRECTED [facility] Last Admin: 07/02/17 23:57 Dose: 125 mls/hr Ropivacaine 200 mg/ Premix 100 mls @ 0 mls/hr EPIDUR ASDIRECTED [facility] Bupivacaine HCl 25 ml/Fentanyl 100 mcg/ Sodium Chloride 100 mls @ 2 mls/hr EPIDUR ASDIRECTED [facility] Ketorolac Tromethamine (Toradol) 30 mg IVPUSH Q6H [facility] Stop: 07/07/17 12:21 Last Admin: 07/03/17 09:04 Dose: 30 mg Loratadine (Claritin) 10 mg PO DAILY [facility] Last Admin: 07/03/17 09:21 Dose: 10 mg Metoclopramide HCl (Reglan) 5 mg PO TID [facility] Last Admin: 07/03/17 06:10 Dose: 5 mg Morphine Sulfate (Morphine) 4 mg IVPUSH Q2H PRN PRN Reason: Pain (severe 7-10) Last Admin: 07/03/17 06:10 Dose: 4 mg Naloxone HCl (Narcan) 0.1 mg IVPUSH ONETIME PRN PRN Reason: Respiratory Depression Omeprazole (Omeprazole) 20 mg PO DAILY [facility] Last Admin: 07/03/17 09:30 Dose: Not Given Ondansetron HCl (Zofran) 4 mg IVPUSH Q6H PRN PRN Reason: Nausea/Vomiting Last Admin: 07/02/17 18:17 Dose: 4 mg Oxycodone/Acetaminophen (Percocet 325-5 Mg) 2 tab PO Q4H PRN PRN Reason: Pain (moderate 4-6) Last Admin: 07/03/17 09:05 Dose: 1 tab Acarbose 100 Mg 1 each PO TID [facility] Last Admin: 07/03/17 07:29 Dose: 1 each Promethazine HCl (Phenergan) 25 mg IM Q6H PRN PRN Reason: Nausea/Vomiting Sodium Chloride (Saline Flush) 10 ml FLUSH ASDIRECTED PRN PRN Reason: Keep Vein Open Sodium Chloride (Saline Flush) 2.5 ml FLUSH ASDIRECTED PRN PRN Reason: Keep Vein Open Discontinued Medications Bupivacaine HCl (Sensorcaine-Mpf 0.25%) Confirm Administered Dose 10 ml .ROUTE .STK-MED ONE Stop: 07/02/17 12:26 Bupivacaine HCl (Sensorcaine-Mpf 0.5%) Confirm Administered Dose 10 ml .ROUTE .STK-MED ONE Stop: 07/02/17 12:57 Dexamethasone (Dexamethasone) Confirm Administered Dose 20 mg .ROUTE .STK-MED ONE Stop: 07/02/17 10:55 Fentanyl (Sublimaze) Confirm Administered Dose 200 mcg .ROUTE .STK-MED ONE Stop: 07/02/17 07:27 Fentanyl (Sublimaze) Confirm Administered Dose 100 mcg .ROUTE .STK-MED ONE Stop: 07/02/17 10:50 Fentanyl (Sublimaze) Confirm Administered Dose 100 mcg .ROUTE .STK-MED ONE Stop: 07/02/17 12:32 Last Admin: 07/02/17 15:42 Dose: Not Given Fentanyl (Sublimaze) 50 mcg IVPUSH Q5M PRN PRN Reason: Pain (severe 7-10) Stop: 07/03/17 12:34 Last Admin: 07/02/17 12:45 Dose: 50 mcg Fentanyl (Sublimaze) Confirm Administered Dose 100 mcg .ROUTE .STK-MED ONE Stop: 07/02/17 12:52 Fluorescein Sodium (Ak-Fluor) Confirm Administered Dose 5 ml .ROUTE .STK-MED ONE Stop: 07/02/17 10:52 Furosemide (Lasix) Confirm Administered Dose 40 mg .ROUTE .STK-MED ONE Stop: 07/02/17 10:52 Gabapentin (Neurontin) 300 mg PO BID [facility] Glycopyrrolate () Confirm Administered Dose 1 mg .ROUTE .STK-MED ONE Stop: 07/02/17 07:27 Acetaminophen 1,000 mg/ Premix 100 mls @ 400 mls/hr IV NOW ONE Stop: 07/02/17 09:54 Last Admin: 07/02/17 09:50 Dose: 400 mls/hr Ketorolac Tromethamine (Toradol) 30 mg IVPUSH ONETIME ONE Stop: 07/02/17 12:22 Last Admin: 07/02/17 12:38 Dose: 30 mg Ketorolac Tromethamine (Toradol) 30 mg IVPUSH Q6H PRN PRN Reason: Pain (severe 7-10) Stop: 07/07/17 12:21 Last Admin: 07/03/17 02:17 Dose: 30 mg Lidocaine (Xylocaine-Mpf 2%) Confirm Administered Dose 5 ml .ROUTE .STK-MED ONE Stop: 07/02/17 07:27 Midazolam HCl (Versed 1 Mg/Ml) Confirm Administered Dose 2 mg .ROUTE .STK-MED ONE Stop: 07/02/17 07:27 Neostigmine Methylsulfate (Neostigmine) Confirm Administered Dose 5 mg .ROUTE .STK-MED ONE Stop: 07/02/17 07:27 Ondansetron HCl (Zofran) Confirm Administered Dose 4 mg .ROUTE .STK-MED ONE Stop: 07/02/17 07:27 Propofol (Diprivan 20 Ml) Confirm Administered Dose 200 mg .ROUTE .STK-MED ONE Stop: 07/02/17 07:27 Rocuronium [place] (Zemuron) Confirm Administered Dose 100 mg .ROUTE .STK-MED ONE Stop: 07/02/17 07:27 Ropivacaine (Naropin 0.2%) Confirm Administered Dose 20 ml .ROUTE .STK-MED ONE Stop: 07/02/17 11:23 Last Admin: 07/02/17 15:42 Dose: Not Given - My Orders Last 24 Hours: My Active Orders 07/02/17 12:21 Patient Status [ADT] Routine Antiembolic Devices [RC] PER UNIT ROUTINE Notify Provider Intake and Out [RC] ASDIRECTED Notify Provider Vital Signs [RC] ASDIRECTED Oxygen Therapy [RC] ASDIRECTED RT Incentive Spirometry [RC] Q2HWA Up With Assistance [RC] PER UNIT ROUTINE Up ad Brandy [RC] PER UNIT ROUTINE Urinary Catheter Removal [RC] Per Unit Routine Vital Signs [RC] PER UNIT ROUTINE Acetaminophen/oxyCODONE [Percocet 325-5 MG] 2 tab PO Q4H PRN Morphine 4 mg IVPUSH Q2H PRN Ondansetron [Zofran] 4 mg IVPUSH Q6H PRN Promethazine [Phenergan] 25 mg IM Q6H PRN Peripheral IV Discontinue [OM.PC] Routine Sequential Compression Device [OM.PC] Per Unit Routine Resuscitation Status Routine 07/02/17 14:00 Metoclopramide [Reglan] 5 mg PO TID 07/02/17 15:56 Cooling Warming Measures [RC] ASDIRECTED K Pad [Heat Therapy] [OM.PC] Routine 07/02/17 16:00 Gabapentin [Neurontin] 600 mg PO BID@0600,1200 07/02/17 21:00 Gabapentin [Neurontin] 900 mg PO BEDTIME 07/02/17 22:00 Patient's Own Medication [Ptom] 1 each PO TID 07/02/17 Dinner Regular Diet [DIET] 07/03/17 08:36 Docusate Sodium [Colace] 100 mg PO BID PRN 07/03/17 08:45 Ketorolac [Toradol] 30 mg IVPUSH Q6H 07/03/17 09:00 DULoxetine [Cymbalta] 60 mg PO DAILY Loratadine [Claritin] 10 mg PO DAILY Omeprazole 20 mg PO DAILY buPROPion [Wellbutrin XL] 150 mg PO DAILY 07/03/17 14:00 HEMOGLOBIN/HEMATOCRIT,HH [HEME] Routine - Plan Plan:: I saw and examined the patient and agree with above, saline lock IV, Ambulate with assist only today, and recheck hemoglobin this afternoon. 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
[2017-07-03] MEDS: Ketorolac 30 MG/ML SDV IVPUSH SCH ×3 (09:04→23:16)
[2017-07-03] MEDS: Acetaminophen/oxyCODONE 325-5 MG Tab PO PRN ×6 (09:05→18:09)
[2017-07-03] MEDS: Docusate Sodium 100 MG Cap PO PRN ×2 (09:05→22:57)
[2017-07-03] MEDS: Loratadine 10 MG Tab PO SCH (09:21)
[2017-07-03] MEDS: DULoxetine 60 MG Cap PO SCH (09:21)
[2017-07-03] MEDS: buPROPion 150 MG Tab.ER PO SCH (09:21)
--- NOTE | 2017-07-03 12:58 | PCM.SN ---
- Free Text/Narrative Note: Tolerating regular diet, pain control is improved, diploplia resolved. Has not yet had catheter removed, up to chair, has stood, not yet ambulated. If Hgb stable, and ambulating well, may be discharged later today. Discharge instructions reviewed
[2017-07-03] MEDS ORDERED: diphenhydrAMINE 50 MG/ML SDV IVPUSH ONE (15:29)
--- NOTE | 2017-07-03 17:30 | PCM.SN ---
- Free Text/Narrative Note: H&H was slightly lower, therefore recommended proceeding with blood transfusion , indication acute postop anemia hgb 7.0. Appropriate consent obtained and risks and benefits reviewed with the patient by me. Discussed discontinuing Toradol, but pain is only marginally controlled, she understands the risk of bleeding related to it and wants to continue and I concur as it is providing non -narcotic pain relief. Will also add oxycodone for breakthrough pain. Reassess for discharge in am. She also takes a msucle relaxer at home that was not on her home med list, will call pharmacy and restart.
[2017-07-03] MEDS: tiZANidine 4 MG Tab PO PRN (18:04)
[2017-07-03] MEDS ORDERED: Acetaminophen/oxyCODONE 325-5 MG Tab ONE (20:06)
[2017-07-03] MEDS: oxyCODONE 5 MG Tab PO PRN (21:50)
[2017-07-03] MEDS ORDERED: Temazepam 15 MG Cap PO ONE (22:04)
[2017-07-04] MEDS: Acetaminophen/oxyCODONE 325-5 MG Tab PO PRN ×2 (00:19→04:21)
[2017-07-04] MEDS: oxyCODONE 5 MG Tab PO PRN ×3 (02:31→09:42)
[2017-07-04 04:31] VITALS: BP 118/65
[2017-07-04] MEDS: Ketorolac 30 MG/ML SDV IVPUSH SCH (05:19)
[2017-07-04 05:56] LABS: CHLORIDE,CL 110 mmol/L (98-110); SODIUM,NA 142 mmol/L (136-146)
[2017-07-04] MEDS: Acarbose 100 MG PO SCH (06:30)
[2017-07-04] MEDS: Gabapentin 300 MG Cap PO SCH (06:30)
[2017-07-04] MEDS: Metoclopramide 5 MG Tab PO SCH (06:30)
--- NOTE | 2017-07-04 08:08 | PCM.SURGPN ---
- General Info Date of Service: 07/04/17 Date of Surgery/Procedure: 07/02/17 POD#: 2 Functional Status: Reports: Pain Controlled (slept through the night with alternating Percocet and oxycodone), Tolerating Diet, Ambulating, Urinating - Review of Systems General: Reports: No Symptoms HEENT: Reports: No Symptoms Pulmonary: Reports: No Symptoms Cardiovascular: Reports: No Symptoms Gastrointestinal: Reports: Abdominal Pain (postop) Genitourinary: Reports: No Symptoms Musculoskeletal: Reports: No Symptoms Skin: Reports: No Symptoms Neurological: Reports: No Symptoms (normal vision-- diplopia resolved.) Psychiatric: Reports: No Symptoms - Patient Data Vitals - Most Recent: Last Vital Signs Temp 36.5 C 07/04/17 04:00 Pulse 84 07/04/17 04:00 Resp 17 07/04/17 04:00 BP 118/65 07/04/17 04:00 Pulse Ox 98 07/04/17 04:00 Weight - Most Recent: 82.1 kg I&O - Last 24 Hours: Intake & Output 07/03/17 07/04/17 07/04/17 22:59 06:59 14:59 Intake Total 363 337 Output Total 1900 Balance -1537 337 Lab Results Last 24 Hrs: Laboratory Results - last 24 hr 07/01/17 07/03/17 07/04/17 Range/Units 18:30 14:30 05:20 WBC 4.86 (4.0-11.0) K/uL RBC 3.05 L (4.30-5.90) M/uL Hgb 7.0 L 9.3 L (12.0-16.0) g/dL Hct 21.9 L 28.0 L (36.0-46.0) % MCV 91.8 (80.0-98.0) fL MCH 30.5 (27.0-32.0) pg MCHC 33.2 (31.0-37.0) g/dL RDW Std Deviation 52.5 (28.0-62.0) fl RDW Coeff of Baldo 16 H (11.0-15.0) % Plt Count 169 (150-400) K/uL MPV 10.80 (7.40-12.00) fL Nucleated RBC % 0.0 /100WBC Nucleated RBCs # 0 K/uL Sodium (136-146) mmol/L Potassium (3.5-5.1) mmol/L Chloride (98-110) mmol/L Carbon Dioxide (21-31) mmol/L BUN (6.0-23.0) mg/dL Creatinine (0.6-1.5) mg/dL Est Cr Clr Drug Dosing mL/min Estimated GFR (MDRD) ml/min Glucose (60-110) mg/dL Calcium (8.8-10.8) mg/dL Total Bilirubin (0.1-1.5) mg/dL AST (5-40) IU/L ALT (8-54) IU/L Alkaline Phosphatase (40-150) Total Protein (6.0-8.0) g/dL Albumin (3.5-5.0) g/dL Globulin (2.0-3.5) g/dL Albumin/Globulin Ratio (1.3-2.8) Blood Type A NEGATIVE Antibody Screen NEGATIVE Crossmatch See Detail 07/04/17 Range/Units 05:20 WBC (4.0-11.0) K/uL RBC (4.30-5.90) M/uL Hgb (12.0-16.0) g/dL Hct (36.0-46.0) % MCV (80.0-98.0) fL MCH (27.0-32.0) pg MCHC (31.0-37.0) g/dL RDW Std Deviation (28.0-62.0) fl RDW Coeff of Baldo (11.0-15.0) % Plt Count (150-400) K/uL MPV (7.40-12.00) fL Nucleated RBC % /100WBC Nucleated RBCs # K/uL Sodium 142 (136-146) mmol/L Potassium 4.1 (3.5-5.1) mmol/L Chloride 110 (98-110) mmol/L Carbon Dioxide 27 (21-31) mmol/L BUN 8 (6.0-23.0) mg/dL Creatinine 0.6 (0.6-1.5) mg/dL Est Cr Clr Drug Dosing 112.15 mL/min Estimated GFR (MDRD) > 60.0 ml/min Glucose 91 (60-110) mg/dL Calcium 8.1 L (8.8-10.8) mg/dL Total Bilirubin 0.4 (0.1-1.5) mg/dL AST 36 (5-40) IU/L ALT 23 (8-54) IU/L Alkaline Phosphatase 55 (40-150) Total Protein 4.8 L (6.0-8.0) g/dL Albumin 3.2 L (3.5-5.0) g/dL Globulin 1.6 L (2.0-3.5) g/dL Albumin/Globulin Ratio 2.0 (1.3-2.8) Blood Type Antibody Screen Crossmatch Med Orders - Current: Current Medications Bupropion HCl (Wellbutrin Xl) 150 mg PO DAILY [facility], [facility] Last Admin: 07/03/17 09:21 Dose: 150 mg Docusate Sodium (Colace) 100 mg PO BID PRN PRN Reason: Constipation Last Admin: 07/03/17 22:57 Dose: 100 mg Duloxetine HCl (Cymbalta) 60 mg PO DAILY [facility], [facility] Last Admin: 07/03/17 09:21 Dose: 60 mg Fentanyl (Sublimaze) 50 mcg IVPUSH .Q1HR PRN PRN Reason: Breakthrough Pain Last Admin: 07/02/17 16:00 Dose: 50 mcg Gabapentin (Neurontin) 900 mg PO BEDTIME [facility], [facility] Last Admin: 07/03/17 21:52 Dose: 900 mg Gabapentin (Neurontin) 600 mg PO BID@0600,1200 [facility], [facility] Last Admin: 07/04/17 06:30 Dose: 600 mg Lactated Ringer's (Ringers, Lactated) 1,000 mls @ 125 mls/hr IV ASDIRECTED [facility], [facility] Last Admin: 07/02/17 23:57 Dose: 125 mls/hr Ropivacaine 200 mg/ Premix 100 mls @ 0 mls/hr EPIDUR ASDIRECTED [facility], [facility]–1983 Bupivacaine HCl 25 ml/Fentanyl 100 mcg/ Sodium Chloride 100 mls @ 2 mls/hr EPIDUR ASDIRECTED [facility], [facility]–1983 Ketorolac Tromethamine (Toradol) 30 mg IVPUSH Q6H [facility] Stop: 07/07/17 12:21 Last Admin: 07/04/17 05:19 Dose: 30 mg Loratadine (Claritin) 10 mg PO DAILY [facility] Last Admin: 07/03/17 09:21 Dose: 10 mg Metoclopramide HCl (Reglan) 5 mg PO TID [facility] Last Admin: 07/04/17 06:30 Dose: 5 mg Morphine Sulfate (Morphine) 4 mg IVPUSH Q2H PRN PRN Reason: Pain (severe 7-10) Last Admin: 07/03/17 06:10 Dose: 4 mg Naloxone HCl (Narcan) 0.1 mg IVPUSH ONETIME PRN PRN Reason: Respiratory Depression Omeprazole (Omeprazole) 20 mg PO DAILY [facility], [facility] Last Admin: 07/03/17 09:30 Dose: Not Given Ondansetron HCl (Zofran) 4 mg IVPUSH Q6H PRN PRN Reason: Nausea/Vomiting Last Admin: 07/02/17 18:17 Dose: 4 mg Oxycodone HCl (Oxycodone) 5 mg PO Q2H PRN PRN Reason: Breakthrough Pain Last Admin: 07/04/17 07:37 Dose: 5 mg Oxycodone/Acetaminophen (Percocet 325-5 Mg) 1 - 2 tab PO Q4H PRN PRN Reason: Pain (moderate 4-6) Last Admin: 07/04/17 04:21 Dose: 1 tab Acarbose 100 Mg 1 each PO TID [facility], [facility] Last Admin: 07/04/17 06:30 Dose: 1 each Promethazine HCl (Phenergan) 25 mg IM Q6H PRN PRN Reason: Nausea/Vomiting Sodium Chloride (Saline Flush) 10 ml FLUSH ASDIRECTED PRN PRN Reason: Keep Vein Open Sodium Chloride (Saline Flush) 2.5 ml FLUSH ASDIRECTED PRN PRN Reason: Keep Vein Open Tizanidine HCl (Zanaflex) 4 mg PO BID PRN PRN Reason: Muscle Spasm Last Admin: 07/03/17 18:04 Dose: 4 mg Discontinued Medications Bupivacaine HCl (Sensorcaine-Mpf 0.25%) Confirm Administered Dose 10 ml .ROUTE .STK-MED ONE Stop: 07/02/17 12:26 Bupivacaine HCl (Sensorcaine-Mpf 0.5%) Confirm Administered Dose 10 ml .ROUTE .STK-MED ONE Stop: 07/02/17 12:57 Dexamethasone (Dexamethasone) Confirm Administered Dose 20 mg .ROUTE .STK-MED ONE Stop: 07/02/17 10:55 Diphenhydramine HCl (Benadryl) 50 mg IVPUSH ONETIME ONE Stop: 07/03/17 15:30 Last Admin: 07/03/17 16:41 Dose: 50 mg Fentanyl (Sublimaze) Confirm Administered Dose 200 mcg .ROUTE .STK-MED ONE Stop: 07/02/17 07:27 Fentanyl (Sublimaze) Confirm Administered Dose 100 mcg .ROUTE .STK-MED ONE Stop: 07/02/17 10:50 Fentanyl (Sublimaze) Confirm Administered Dose 100 mcg .ROUTE .STK-MED ONE Stop: 07/02/17 12:32 Last Admin: 07/02/17 15:42 Dose: Not Given Fentanyl (Sublimaze) 50 mcg IVPUSH Q5M PRN PRN Reason: Pain (severe 7-10) Stop: 07/03/17 12:34 Last Admin: 07/02/17 12:45 Dose: 50 mcg Fentanyl (Sublimaze) Confirm Administered Dose 100 mcg .ROUTE .STK-MED ONE Stop: 07/02/17 12:52 Fluorescein Sodium (Ak-Fluor) Confirm Administered Dose 5 ml .ROUTE .STK-MED ONE Stop: 07/02/17 10:52 Furosemide (Lasix) Confirm Administered Dose 40 mg .ROUTE .STK-MED ONE Stop: 07/02/17 10:52 Gabapentin (Neurontin) 300 mg PO BID OTILIA Glycopyrrolate () Confirm Administered Dose 1 mg .ROUTE .STK-MED ONE Stop: 07/02/17 07:27 Acetaminophen 1,000 mg/ Premix 100 mls @ 400 mls/hr IV NOW ONE Stop: 07/02/17 09:54 Last Admin: 07/02/17 09:50 Dose: 400 mls/hr Ketorolac Tromethamine (Toradol) 30 mg IVPUSH ONETIME ONE Stop: 07/02/17 12:22 Last Admin: 07/02/17 12:38 Dose: 30 mg Ketorolac Tromethamine (Toradol) 30 mg IVPUSH Q6H PRN PRN Reason: Pain (severe 7-10) Stop: 07/07/17 12:21 Last Admin: 07/03/17 02:17 Dose: 30 mg Lidocaine (Xylocaine-Mpf 2%) Confirm Administered Dose 5 ml .ROUTE .STK-MED ONE Stop: 07/02/17 07:27 Midazolam HCl (Versed 1 Mg/Ml) Confirm Administered Dose 2 mg .ROUTE .STK-MED ONE Stop: 07/02/17 07:27 Neostigmine Methylsulfate (Neostigmine) Confirm Administered Dose 5 mg .ROUTE .STK-MED ONE Stop: 07/02/17 07:27 Ondansetron HCl (Zofran) Confirm Administered Dose 4 mg .ROUTE .STK-MED ONE Stop: 07/02/17 07:27 Oxycodone/Acetaminophen (Percocet 325-5 Mg) 2 tab PO Q4H PRN PRN Reason: Pain (moderate 4-6) Last Admin: 07/03/17 18:09 Dose: 1 tab Oxycodone/Acetaminophen (Percocet 325-5 Mg) Confirm Administered Dose 1 tab .ROUTE .STK-MED ONE Stop: 07/03/17 20:07 Last Admin: 07/03/17 20:09 Dose: 1 tab Propofol (Diprivan 20 Ml) Confirm Administered Dose 200 mg .ROUTE .STK-MED ONE Stop: 07/02/17 07:27 Rocuronium [place] (Zemuron) Confirm Administered Dose 100 mg .ROUTE .STK-MED ONE Stop: 07/02/17 07:27 Ropivacaine (Naropin 0.2%) Confirm Administered Dose 20 ml .ROUTE .STK-MED ONE Stop: 07/02/17 11:23 Last Admin: 07/02/17 15:42 Dose: Not Given Temazepam (Restoril) 15 mg PO ONETIME ONE Stop: 07/03/17 22:05 Last Admin: 07/03/17 23:14 Dose: 15 mg - Exam General: Alert, Oriented Neck: Supple Lungs: Clear to Auscultation, Normal Respiratory Effort Cardiovascular: Regular Rate, Regular Rhythm GI/Abdominal Exam: Normal Bowel Sounds, Soft, No Organomegaly, No Distention, No Mass. No: Non-Tender (appropriately tender) Extremities: Normal Inspection, No Pedal Edema Skin: Warm, Dry, Intact Neurological: No New Focal Deficit Psy/Mental Status: Alert, Normal Affect, Normal Mood - Problem List & Annotations (1) Uterine fibroid SNOMED Code(s): 82256274 Code(s): D25.9 - LEIOMYOMA OF UTERUS, UNSPECIFIED Status: Acute Current Visit: Yes (2) Menorrhagia SNOMED Code(s): 920799462 Code(s): N92.0 - EXCESSIVE AND FREQUENT MENSTRUATION WITH REGULAR CYCLE Status: Acute Current Visit: Yes (3) Anemia SNOMED Code(s): 858019175 Code(s): D64.9 - ANEMIA, UNSPECIFIED Status: Acute Current Visit: Yes Qualifiers: Anemia type: other cause Other causes of anemia: acute posthemorrhagic Qualified Code(s): D62 - Acute posthemorrhagic anemia (4) Post-op pain SNOMED Code(s): 966087727 Code(s): G89.18 - OTHER ACUTE POSTPROCEDURAL PAIN Status: Acute Current Visit: Yes - Problem List Review Problem List Initiated/Reviewed/Updated: Yes - My Orders Last 24 Hours: Active Orders 24 hr Category Date Time Status Admission Status [Patient Status] [ADT] Routine ADT 07/03/17 16:30 Active Ready for Discharge [RC] PER UNIT ROUTINE Care 07/03/17 13:04 Active Ready for Discharge [RC] PER UNIT ROUTINE Care 07/04/17 06:59 Active Acetaminophen/oxyCODONE [Percocet 325-5 MG] Med 07/03/17 22:40 Active 1 - 2 tab PO Q4H PRN DULoxetine [Cymbalta] Med 07/03/17 09:00 Active 60 mg PO DAILY Docusate Sodium [Colace] Med 07/03/17 08:36 Active 100 mg PO BID PRN Ketorolac [Toradol] Med 07/03/17 08:45 Active 30 mg IVPUSH Q6H Loratadine [Claritin] Med 07/03/17 09:00 Active 10 mg PO DAILY Omeprazole Med 07/03/17 09:00 Active 20 mg PO DAILY buPROPion [Wellbutrin XL] Med 07/03/17 09:00 Active 150 mg PO DAILY oxyCODONE Med 07/03/17 17:25 Active 5 mg PO Q2H PRN tiZANidine [Zanaflex] Med 07/03/17 17:36 Active 4 mg PO BID PRN Transfuse Red Blood Cells [COMM] Routine Oth 07/03/17 15:27 Ordered Medication Orders Bupropion HCl (Wellbutrin Xl) 150 mg PO DAILY OTILIA Last Admin: 07/03/17 09:21 Dose: 150 mg Docusate Sodium (Colace) 100 mg PO BID PRN PRN Reason: Constipation Last Admin: 07/03/17 22:57 Dose: 100 mg Admin: 07/03/17 09:05 Dose: 100 mg Duloxetine HCl (Cymbalta) 60 mg PO DAILY [facility], [facility] Last Admin: 07/03/17 09:21 Dose: 60 mg Fentanyl (Sublimaze) 50 mcg IVPUSH .Q1HR PRN PRN Reason: Breakthrough Pain Last Admin: 07/02/17 16:00 Dose: 50 mcg Gabapentin (Neurontin) 900 mg PO BEDTIME [facility], [facility] Last Admin: 07/03/17 21:52 Dose: 900 mg Admin: 07/02/17 21:25 Dose: 900 mg Gabapentin (Neurontin) 600 mg PO BID@0600,1200 [facility], [facility]1983 Last Admin: 07/04/17 06:30 Dose: 600 mg Admin: 07/03/17 12:26 Dose: 600 mg Admin: 07/03/17 06:10 Dose: 600 mg Admin: 07/02/17 16:22 Dose: 600 mg Lactated Ringer's (Ringers, Lactated) 1,000 mls @ 125 mls/hr IV ASDIRECTED [facility], [facility]–1983 Last Admin: 07/02/17 23:57 Dose: 125 mls/hr Infusion: 07/02/17 23:27 Dose: 125 mls/hr Admin: 07/02/17 15:27 Dose: 125 mls/hr Infusion: 07/02/17 15:27 Dose: 125 mls/hr Admin: 07/02/17 08:42 Dose: 125 mls/hr Ropivacaine 200 mg/ Premix 100 mls @ 0 mls/hr EPIDUR ASDIRECTED [facility], [facility]–1983 Bupivacaine HCl 25 ml/Fentanyl 100 mcg/ Sodium Chloride 100 mls @ 2 mls/hr EPIDUR ASDIRECTED [facility], [facility]–1983 Ketorolac Tromethamine (Toradol) 30 mg IVPUSH Q6H [facility], [facility]1983 Stop: 07/07/17 12:21 Last Admin: 07/04/17 05:19 Dose: 30 mg Admin: 07/03/17 23:16 Dose: 30 mg Admin: 07/03/17 14:59 Dose: 30 mg Admin: 07/03/17 09:04 Dose: 30 mg Loratadine (Claritin) 10 mg PO DAILY [facility] Last Admin: 07/03/17 09:21 Dose: 10 mg Metoclopramide HCl (Reglan) 5 mg PO TID [facility] Last Admin: 07/04/17 06:30 Dose: 5 mg Admin: 07/03/17 18:04 Dose: 5 mg Admin: 07/03/17 13:03 Dose: 5 mg Admin: 07/03/17 06:10 Dose: 5 mg Admin: 07/02/17 21:26 Dose: 5 mg Admin: 07/02/17 15:10 Dose: 5 mg Morphine Sulfate (Morphine) 4 mg IVPUSH Q2H PRN PRN Reason: Pain (severe 7-10) Last Admin: 07/03/17 06:10 Dose: 4 mg Admin: 07/03/17 03:48 Dose: 4 mg Admin: 07/03/17 00:52 Dose: 4 mg Admin: 07/02/17 21:59 Dose: 4 mg Admin: 07/02/17 19:44 Dose: 4 mg Naloxone HCl (Narcan) 0.1 mg IVPUSH ONETIME PRN PRN Reason: Respiratory Depression Omeprazole (Omeprazole) 20 mg PO DAILY [facility] Last Admin: 07/03/17 09:30 Dose: Not Given Admin: 07/03/17 07:30 Dose: 20 mg Ondansetron HCl (Zofran) 4 mg IVPUSH Q6H PRN PRN Reason: Nausea/Vomiting Last Admin: 07/02/17 18:17 Dose: 4 mg Oxycodone HCl (Oxycodone) 5 mg PO Q2H PRN PRN Reason: Breakthrough Pain Last Admin: 07/04/17 07:37 Dose: 5 mg Admin: 07/04/17 02:31 Dose: 5 mg Admin: 07/03/17 21:50 Dose: 5 mg Oxycodone/Acetaminophen (Percocet 325-5 Mg) 1 - 2 tab PO Q4H PRN PRN Reason: Pain (moderate 4-6) Last Admin: 07/04/17 04:21 Dose: 1 tab Admin: 07/04/17 00:19 Dose: 1 tab Acarbose 100 Mg 1 each PO TID [facility] Last Admin: 07/04/17 06:30 Dose: 1 each Admin: 07/03/17 18:04 Dose: 1 each Admin: 07/03/17 12:59 Dose: 1 each Admin: 07/03/17 07:29 Dose: 1 each Admin: 07/02/17 23:05 Dose: Not Given Admin: 07/02/17 17:55 Dose: 1 each Promethazine HCl (Phenergan) 25 mg IM Q6H PRN PRN Reason: Nausea/Vomiting Sodium Chloride (Saline Flush) 10 ml FLUSH ASDIRECTED PRN PRN Reason: Keep Vein Open Sodium Chloride (Saline Flush) 2.5 ml FLUSH ASDIRECTED PRN PRN Reason: Keep Vein Open Tizanidine HCl (Zanaflex) 4 mg PO BID PRN PRN Reason: Muscle Spasm Last Admin: 07/03/17 18:04 Dose: 4 mg - Assessment Assessment (Free Text/Narrative):: POD#2 after total vaginal hysterectomy with bilateral salpingectomy, acute postop anemia, improved with anticipated increase in H&H after 2 Units PRBC. Pain control has been challenging as she is on chronic narcotics with gabapentin and muscle relaxer on a scheduled basis at home. She feels that she can accomplish better pain control at home, initially will alternate oxycodone and Percocet and then resume her hydrocodone after initial postop period. - Plan Plan (Free Text/Narrative):: Dismiss to home today, discharge instructions have been given.
[2017-07-04] MEDS: Docusate Sodium 100 MG Cap PO PRN (08:41)
[2017-07-04] MEDS: tiZANidine 4 MG Tab PO PRN (08:41)
[2017-07-04] MEDS: DULoxetine 60 MG Cap PO SCH (09:41)
[2017-07-04] MEDS: buPROPion 150 MG Tab.ER PO SCH (09:41)
[2017-07-04] MEDS: Omeprazole 20 MG Cap.CR PO SCH (09:41)
[2017-07-04] MEDS: Loratadine 10 MG Tab PO SCH (09:42)
== END 2017-07-04 10:00 | disposition home or self-care (01) ==
LOC: MW.SDS 08:14 → MW.OB 12:21 → MW.SDS 07-03 16:30 → MW.OB 07-03 16:30
PROVIDERS: ADMIT Obstetrics & Gynecology; ATTEND Obstetrics & Gynecology
PROC: 0UT97ZZ Resection of Uterus, Via Natural or Artificial Opening (ICD-10-PCS; principal; 2017-07-03)
PROC: 0UTC7ZZ Resection of Cervix, Via Natural or Artificial Opening (ICD-10-PCS; 2017-07-03)
PROC: 0UT77ZZ Resection of Bilateral Fallopian Tubes, Via Natural or Artificial Opening (ICD-10-PCS; 2017-07-03)
DX: D26.1 Other benign neoplasm of corpus uteri (principal); J45.909 Unspecified asthma, uncomplicated; I83.90 Asymptomatic varicose veins of unspecified lower extremity; E16.2 Hypoglycemia, unspecified; E28.2 Polycystic ovarian syndrome; G43.909 Migraine, unspecified, not intractable, without status migrainosus; Z98.890 Other specified postprocedural states; Z90.49 Acquired absence of other specified parts of digestive tract; Z79.899 Other long term (current) drug therapy; Z79.891 Long term (current) use of opiate analgesic; Z79.2 Long term (current) use of antibiotics; Z87.891 Personal history of nicotine dependence
CPT/HCPCS: 36415; 36430; 58262; 80048; 80053; 84703; 85014; 85018; 85025; 85027; 86850; 86900; 86901; 86920; 86921; 86922; 88309; 96361; 96374; 96375; 96376; A9270; G0378; J1100; J1200; J1885; J1940; J2250; J2270; J2405; J3010; J7120; P9016; 00944; 01996; J2704

== ENCOUNTER 2018-01-10 18:08 | Emergency (ER) | payer BC ==
--- NOTE | 2018-01-10 18:26 | EDM.PDOC ---
ED HPI GENERAL MEDICAL PROBLEM - General Chief Complaint: Upper Extremity Injury/Pain Stated Complaint: PT FELL AND HURT SHOULDER Time Seen by Provider: 01/10/18 18:25 Source of Information: Reports: Patient - History of Present Illness INITIAL COMMENTS - FREE TEXT/NARRATIVE: HISTORY AND PHYSICAL: History of present illness: [Patient presents with 8 out of 10 right shoulder pain worsened by movement better at rest, she has limited range of motion even passively due to pain hence very limited exam. Approximately 1 hour prior to arrival patient was walking behind her vehicle slipped on the ice and with rear extension of her right arm to brace her fall to her bottom she developed the right shoulder pain after landing, there is no step-off and no pain associated with head movement, however limited passive motion with forward flexion from the neutral position however no active motion as attempted due to pain the rest of the exam is limited due to pain. able to palpate the shoulder which is painless as well as AC joint and clavicle, no anterior tenderness however when attempting to lift her arm she has pain involving the rotator cuff which limits her exam. Otherwise limits neurovascularly intact no bruising swelling redness open lesion , elbow and wrist unaffected ] Review of systems: As per history of present illness and below otherwise all systems reviewed and negative. Past medical history: As per history of present illness and as reviewed below otherwise noncontributory. Surgical history: As per history of present illness and as reviewed below otherwise noncontributory. Social history: No reported history of drug or alcohol abuse. Family history: As per history of present illness and as reviewed below otherwise noncontributory. Physical exam: HEENT: Atraumatic, normocephalic, pupils reactive, negative for conjunctival pallor or scleral icterus, mucous membranes moist, throat clear, neck supple, nontender, trachea midline. Lungs: Clear to auscultation, breath sounds equal bilaterally, chest nontender. Heart: S1S2, regular, negative for clicks, rubs, or JVD. Abdomen: Soft, nondistended, nontender. Negative for masses or hepatosplenomegaly. Negative for costovertebral tenderness. Pelvis: Stable nontender. Genitourinary: Deferred. Rectal: Deferred. Extremities: Atraumatic, negative for cords or calf pain. Neurovascular unremarkable. Neuro: Awake, alert, oriented. Cranial nerves II through XII unremarkable. Cerebellum unremarkable. Motor and sensory unremarkable throughout. Exam nonfocal. Diagnostics: [ right shoulder complete ] Therapeutics: [Rest ice and NSAIDs Flexeril may benefit tenderness provided Sling Limited exam due to pain Follow-up with orthopedis Impression: [ right shoulder pain Limited exam due to pain cannot rule out rotator cuff injury] Definitive disposition and diagnosis as appropriate pending reevaluation and review of above. - Related Data Allergies Allergy/AdvReac Type Severity Reaction Status Date / Time gluten Allergy Other Verified 01/10/18 18:20 milk Allergy Other Verified 01/10/18 18:20 NSAIDS (Non-Steroidal Allergy gastric Verified 01/10/18 18:20 Anti-Inflamma bypass surgery bee stings Allergy Anaphylactic Uncoded 01/10/18 18:20 Shock Home Meds: Home Meds Calcium Carbonate/Vitamin D3 [Calcium 600 + Vit D 400 Softgl] 1 tab PO DAILY [History] Clobetasol [Clobetasol 0.05%] 1 applic TOP BID PRN 12/24/16 [History] DULoxetine [Cymbalta] 60 mg PO DAILY 12/24/16 [History] Diclofenac Sodium [Voltaren 1% Gel] 1 applic TOP QID 12/24/16 [History] Docusate Sodium [Colace] 1 tab PO BID PRN 12/24/16 [History] EPINEPHrine [Epipen 2-Dennis] 1 injection SUBCUT ASDIRECTED PRN 12/24/16 [History] Metoclopramide HCl 5 mg PO TID 12/24/16 [History] Omeprazole 20 mg PO DAILY 12/24/16 [History] buPROPion [Wellbutrin XL] 1 tab PO DAILY 12/24/16 [History] Acarbose 100 mg PO TID 07/01/17 [History] Loratadine [Claritin] 10 mg PO DAILY 07/01/17 [History] Acetaminophen/oxyCODONE [Percocet 325-5 MG] 1 - 2 tab PO Q4H PRN #30 tablet [Rx] Diclofenac Sodium/Misoprostol [Arthrotec EC 50 mg-200 Mcg Tab] 1 each PO BID [History] Pregabalin [Lyrica] 75 mg PO BID 01/10/18 [History] Pregabalin [Lyrica] 150 mg PO BEDTIME 01/10/18 [History] traMADol [Ultram] 50 mg PO DAILY PRN 01/10/18 [History] Past Medical History - Past Health History Medical/Surgical History: Denies Medical/Surgical History HEENT History: Reports: Impaired Vision, Other (See Below) Other HEENT History: uses reading glasses, hx of fx nose Cardiovascular History: Reports: None Respiratory History: Reports: Asthma Other Respiratory History: sports induced asthma Gastrointestinal History: Reports: GERD, Irritable Bowel Syndrome Genitourinary History: Reports: Renal Calculus Other Genitourinary History: hx kidney stones [employer] History: Reports: Musculoskeletal History: Reports: Back Pain, Chronic, Fibromyalgia, Osteoarthritis Neurological History: Reports: Concussion, Other (See Below) Other Neuro History: hx of motion sickness Psychiatric History: Reports: Anxiety, Depression Endocrine/Metabolic History: Reports: Obesity/BMI 30+ Other Endocrine/Metabolic History: 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 (blood sugar goes down when she eats) Hematologic History: Reports: None Immunologic History: Reports: None Oncologic (Cancer) History: Reports: None Dermatologic History: Reports: Psoriasis - Infectious Disease History Infectious Disease History: Reports: None - Past Surgical History Head Surgeries/Procedures: Reports: None HEENT Surgical History: Reports: Myringotomy w Tube(s) GI Surgical History: Reports: Bariatric Procedure, Cholecystectomy, EGD Female Surgical History: Reports: Cystectomy Musculoskeletal Surgical History: Reports: Arthroscopic Knee, Knee Replacement Social & Family History - Family History Family Medical History: Noncontributory - Tobacco Use Smoking Status *Q: Current Every Day Smoker Years of Tobacco use: 17 Packs/Tins Daily: 0.5 Month/Year Tobacco Last Used: quit in 2008 - Caffeine Use Caffeine Use: Reports: Coffee - Recreational Drug Use Recreational Drug Use: No Drug Use in Last 12 Months: No Review of Systems - Review of Systems Review Of Systems: ROS reveals no pertinent complaints other than HPI. ED EXAM, GENERAL - Physical Exam Exam: See Below Course - Orders/Labs/Meds Orders: Active Orders 24 hr Category Date Time Status Shoulder Comp Rt [CR] Stat Exams 01/10/18 18:25 Ordered Departure - Departure Time of Disposition: 18:33 Disposition: Home, Self-Care 01 Condition: Good Clinical Impression: Right shoulder pain - Discharge Information Referrals: PCP,None [Primary Care Provider] - Forms: ED Department Discharge Additional Instructions: Medication as prescribed Toradol 3 times daily as needed Flexeril 10 mg by mouth 3 times daily as needed, no driving on this medication no alcohol as this medication may cause drowsiness Sling for comfort Rest Ice 20 minute intervals 3 times daily as needed No ibuprofen or Tylenol as needed with Toradol medication Follow-up with orthopedist , call phone number below to schedule appropriate follow-up [facility] [address], [address] [place] [address] my orthopedic The following information is given to patients seen in the emergency department who are being discharged to home. This information is to outline your options for follow-up care. We provide all patients seen in our emergency department with a follow-up referral. The need for follow-up, as well as the timing and circumstances, are variable depending upon the specifics of your emergency department visit. If you don't have a primary care physician on staff, we will provide you with a referral. We always advise you to contact your personal physician following an emergency department visit to inform them of the circumstance of the visit and for follow-up with them and/or the need for any referrals to a consulting specialist. The emergency department will also refer you to a specialist when appropriate. This referral assures that you have the opportunity for follow-up care with a specialist. All of these measure are taken in an effort to provide you with optimal care, which includes your follow-up. Under all circumstances we always encourage you to contact your private physician who remains a resource for coordinating your care. When calling for follow-up care, please make the office aware that this follow-up is from your recent emergency room visit. If for any reason you are refused follow-up, please contact the [facility] emergency department at and asked to speak to the emergency department charge nurse. - My Orders Last 24 Hours: My Active Orders 01/10/18 18:25 Shoulder Comp Rt [CR] Stat - Assessment/Plan Last 24 Hours: My Active Orders 01/10/18 18:25 Shoulder Comp Rt [CR] Stat
[2018-01-11 03:34] VITALS: BP 127/71
--- NOTE | 2018-01-13 10:10 | CR ---
EXAM DATE: 01/10/18 PATIENT'S AGE: 42 Patient: ROGER MONTIEL Facility: [place], [place] Site . Site : 1975 Study: XRay Shoulder Right [id number]/30/2018 6:54:05 PM Ordering Physician: Mary Bean Final Report: HISTORY: Fall, landed on right shoulder. FINDINGS: Three views of the right shoulder demonstrates maintenance of the AC joint and glenohumeral joint. No fracture or dislocation is seen. IMPRESSION: No acute bony abnormality within the right shoulder. Dictated by Lory Chavez MD @ 01/10/2018 7:15:28 PM Dictated by: Lory Chavez MD @ 01/10/2018 19:15:33 (Electronic Signature) Report Signed by Proxy. MTDNando
== END 2018-01-10 19:30 | disposition home or self-care (01) ==
LOC: MW.ED 18:08
DX: M25.511 Pain in right shoulder (principal); F17.210 Nicotine dependence, cigarettes, uncomplicated; Z91.011 Allergy to milk products; Z91.048 Other nonmedicinal substance allergy status; Z91.030 Bee allergy status; Z79.899 Other long term (current) drug therapy
CPT/HCPCS: 73030; 99283; A4566

== ENCOUNTER 2018-03-26 14:02 | Emergency (ER) | payer BC ==
--- NOTE | 2018-03-26 14:25 | EDM.PDOC ---
ED HPI GENERAL MEDICAL PROBLEM - General Chief Complaint: Gastrointestinal Problem Stated Complaint: RECTAL BLEEDING Time Seen by Provider: 03/26/18 14:24 Source of Information: Reports: Patient - History of Present Illness INITIAL COMMENTS - FREE TEXT/NARRATIVE: HISTORY AND PHYSICAL: History of present illness: [Patient reports bright red blood per rectum, she had a recent colonoscopy yesterday performed at [facility] with Dr. villalta. Apparently there is a small polyp removed. She reports bright red blood with bowel movements and passing gas as well as some clots. However on exam there is no evidence of gross blood guaiac is negative. She does not report any fever nausea vomiting chills sweats no chest pain shortness breath headache dizziness or palpitation no urine symptoms no abdominal pain Review of systems: As per history of present illness and below otherwise all systems reviewed and negative. Past medical history: As per history of present illness and as reviewed below otherwise noncontributory. Surgical history: As per history of present illness and as reviewed below otherwise noncontributory. Social history: No reported history of drug or alcohol abuse. Family history: As per history of present illness and as reviewed below otherwise noncontributory. Physical exam: HEENT: Atraumatic, normocephalic, pupils reactive, negative for conjunctival pallor or scleral icterus, mucous membranes moist, throat clear, neck supple, nontender, trachea midline. Lungs: Clear to auscultation, breath sounds equal bilaterally, chest nontender. Heart: S1S2, regular, negative for clicks, rubs, or JVD. Abdomen: Soft, nondistended, nontender. Negative for masses or hepatosplenomegaly. Negative for costovertebral tenderness. Pelvis: Stable nontender. Genitourinary: External exam no mass scar or lesion internal exam no mass scarred lesion appreciated guaiac-negative no yenifer blood or clots Rectal: Deferred. Extremities: Atraumatic, negative for cords or calf pain. Neurovascular unremarkable. Neuro: Awake, alert, oriented. Cranial nerves II through XII unremarkable. Cerebellum unremarkable. Motor and sensory unremarkable throughout. Exam nonfocal. Diagnostics: [CBC CMP UA INR Guaiac-negative ] Therapeutics: [] Impression: [Recent colonoscopy performed yesterday [facility] polypectomy performed guaiac-negative patient reports bright red blood per rectum ] Definitive disposition and diagnosis as appropriate pending reevaluation and review of above. - Related Data Allergies Allergy/AdvReac Type Severity Reaction Status Date / Time gluten Allergy Other Verified 03/26/18 14:11 milk Allergy Other Verified 03/26/18 14:11 NSAIDS (Non-Steroidal Allergy gastric Verified 03/26/18 14:11 Anti-Inflamma bypass surgery bee stings Allergy Anaphylactic Uncoded 03/26/18 14:11 Shock Home Meds: Home Meds Clobetasol [Clobetasol 0.05%] 1 applic TOP BID PRN 12/24/16 [History] DULoxetine [Cymbalta] 60 mg PO DAILY 12/24/16 [History] Docusate Sodium [Colace] 1 tab PO BID PRN 12/24/16 [History] EPINEPHrine [Epipen 2-Dennis] 1 injection SUBCUT ASDIRECTED PRN 12/24/16 [History] Metoclopramide HCl 5 mg PO TID 12/24/16 [History] Omeprazole 20 mg PO DAILY 12/24/16 [History] buPROPion [Wellbutrin XL] 1 tab PO DAILY 12/24/16 [History] Acarbose 100 mg PO TID 07/01/17 [History] Loratadine [Claritin] 10 mg PO DAILY 07/01/17 [History] Acetaminophen/oxyCODONE [Percocet 325-5 MG] 1 - 2 tab PO Q4H PRN #30 tablet [Rx] Pregabalin [Lyrica] 75 mg PO BID 01/10/18 [History] Pregabalin [Lyrica] 150 mg PO BEDTIME 01/10/18 [History] traMADol [Ultram] 50 mg PO DAILY PRN 01/10/18 [History] Acetaminophen/HYDROcodone [[place] 325-5 MG] 1 tab PO Q6H PRN 03/26/18 [History] Past Medical History - Past Health History Medical/Surgical History: Denies Medical/Surgical History HEENT History: Reports: Impaired Vision, Other (See Below) Other HEENT History: uses reading glasses, hx of fx nose Cardiovascular History: Reports: None Respiratory History: Reports: Asthma Other Respiratory History: sports induced asthma Gastrointestinal History: Reports: GERD, Irritable Bowel Syndrome Genitourinary History: Reports: Renal Calculus Other Genitourinary History: hx kidney stones [employer] History: Reports: Musculoskeletal History: Reports: Back Pain, Chronic, Fibromyalgia, Osteoarthritis Neurological History: Reports: Concussion, Other (See Below) Other Neuro History: hx of motion sickness Psychiatric History: Reports: Anxiety, Depression Endocrine/Metabolic History: Reports: Obesity/BMI 30+ Other Endocrine/Metabolic History: 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 (blood sugar goes down when she eats) Hematologic History: Reports: None Immunologic History: Reports: None Oncologic (Cancer) History: Reports: None Dermatologic History: Reports: Psoriasis - Infectious Disease History Infectious Disease History: Reports: Chicken Pox - Past Surgical History Head Surgeries/Procedures: Reports: None HEENT Surgical History: Reports: Myringotomy w Tube(s) GI Surgical History: Reports: Bariatric Procedure, Cholecystectomy, EGD Female Surgical History: Reports: Cystectomy Musculoskeletal Surgical History: Reports: Arthroscopic Knee, Knee Replacement Social & Family History - Family History Family Medical History: Noncontributory - Tobacco Use Smoking Status *Q: Former Smoker Used Tobacco, but Quit: Yes Month/Year Tobacco Last Used: 01/12/2018 - Caffeine Use Caffeine Use: Reports: Coffee - Recreational Drug Use Recreational Drug Use: No ED ROS GENERAL - Review of Systems Review Of Systems: See Below ED EXAM, GENERAL - Physical Exam Exam: See Below Course - Vital Signs Last Recorded V/S: Last Vital Signs Temp 97.7 F 03/26/18 16:10 Pulse 57 L 03/26/18 16:10 Resp 18 03/26/18 16:10 BP 123/74 03/26/18 16:10 Pulse Ox 98 03/26/18 16:10 - Orders/Labs/Meds Orders: Active Orders 24 hr Category Date Time Status Abdomen 2V AP Flat Upright [CR] Stat Exams 03/26/18 16:11 Taken UA W/MICROSCOPIC [URIN] Stat Lab 03/26/18 16:10 Ordered Labs: Laboratory Tests 03/26/18 03/26/18 03/26/18 Range/Units 15:16 15:16 15:16 WBC 3.65 L (4.0-11.0) K/uL RBC 3.66 L (4.30-5.90) M/uL Hgb 11.5 L (12.0-16.0) g/dL Hct 35.4 L (36.0-46.0) % MCV 96.7 (80.0-98.0) fL MCH 31.4 (27.0-32.0) pg MCHC 32.5 (31.0-37.0) g/dL RDW Std Deviation 47.1 (28.0-62.0) fl RDW Coeff of Baldo 13 (11.0-15.0) % Plt Count 192 (150-400) K/uL MPV 11.60 (7.40-12.00) fL Neut % (Auto) 46.3 L (48.0-80.0) % Lymph % (Auto) 35.1 (16.0-40.0) % Bond % (Auto) 9.3 (0.0-15.0) % Eos % (Auto) 8.2 H (0.0-7.0) % Baso % (Auto) 1.1 (0.0-1.5) % Neut # (Auto) 1.7 (1.4-5.7) K/uL Lymph # (Auto) 1.3 (0.6-2.4) K/uL Bond # (Auto) 0.3 (0.0-0.8) K/uL Eos # (Auto) 0.3 (0.0-0.7) K/uL Baso # (Auto) 0.0 (0.0-0.1) K/uL Nucleated RBC % 0.0 /100WBC Nucleated RBCs # 0 K/uL INR 1.02 Sodium 137 (136-145) mmol/L Potassium 4.5 (3.5-5.1) mmol/L Chloride 102 (98-107) mmol/L Carbon Dioxide 27.8 (21.0-32.0) mmol/L BUN 13 (7.0-18.0) mg/dL Creatinine 0.9 (0.6-1.0) mg/dL Est Cr Clr Drug Dosing 74.02 mL/min Estimated GFR (MDRD) > 60.0 ml/min Glucose 100 (74-106) mg/dL Calcium 8.5 (8.5-10.1) mg/dL Total Bilirubin 0.2 (0.2-1.0) mg/dL AST 35 (15-37) IU/L ALT 46 (14-63) IU/L Alkaline Phosphatase 75 (46-116) U/L Total Protein 6.4 (6.4-8.2) g/dL Albumin 3.5 (3.4-5.0) g/dL Globulin 2.9 (2.0-3.5) g/dL Albumin/Globulin Ratio 1.2 L (1.3-2.8) Urine Color Urine Appearance Urine pH (5.0-8.0) Ur Specific [place] (1.001-1.035) Urine Protein (NEGATIVE) mg/dL Urine Glucose (UA) (NEGATIVE) mg/dL Urine Ketones (NEGATIVE) mg/dL Urine Occult Blood (NEGATIVE) Urine Nitrite (NEGATIVE) Urine Bilirubin (NEGATIVE) Urine Urobilinogen (<2.0) EU/dL Ur Leukocyte Esterase (NEGATIVE) Urine RBC (0-2/HPF) Urine WBC (0-5/HPF) Ur Epithelial Cells (NONE-FEW) Amorphous Sediment (NEGATIVE) Urine Bacteria (NEGATIVE) 03/26/18 Range/Units 16:10 WBC (4.0-11.0) K/uL RBC (4.30-5.90) M/uL Hgb (12.0-16.0) g/dL Hct (36.0-46.0) % MCV (80.0-98.0) fL MCH (27.0-32.0) pg MCHC (31.0-37.0) g/dL RDW Std Deviation (28.0-62.0) fl RDW Coeff of Baldo (11.0-15.0) % Plt Count (150-400) K/uL MPV (7.40-12.00) fL Neut % (Auto) (48.0-80.0) % Lymph % (Auto) (16.0-40.0) % Bond % (Auto) (0.0-15.0) % Eos % (Auto) (0.0-7.0) % Baso % (Auto) (0.0-1.5) % Neut # (Auto) (1.4-5.7) K/uL Lymph # (Auto) (0.6-2.4) K/uL Bond # (Auto) (0.0-0.8) K/uL Eos # (Auto) (0.0-0.7) K/uL Baso # (Auto) (0.0-0.1) K/uL Nucleated RBC % /100WBC Nucleated RBCs # K/uL INR Sodium (136-145) mmol/L Potassium (3.5-5.1) mmol/L Chloride (98-107) mmol/L Carbon Dioxide (21.0-32.0) mmol/L BUN (7.0-18.0) mg/dL Creatinine (0.6-1.0) mg/dL Est Cr Clr Drug Dosing mL/min Estimated GFR (MDRD) ml/min Glucose (74-106) mg/dL Calcium (8.5-10.1) mg/dL Total Bilirubin (0.2-1.0) mg/dL AST (15-37) IU/L ALT (14-63) IU/L Alkaline Phosphatase (46-116) U/L Total Protein (6.4-8.2) g/dL Albumin (3.4-5.0) g/dL Globulin (2.0-3.5) g/dL Albumin/Globulin Ratio (1.3-2.8) Urine Color YELLOW Urine Appearance CLEAR Urine pH 7.0 (5.0-8.0) Ur Specific [place] <= 1.005 (1.001-1.035) Urine Protein NEGATIVE (NEGATIVE) mg/dL Urine Glucose (UA) NEGATIVE (NEGATIVE) mg/dL Urine Ketones NEGATIVE (NEGATIVE) mg/dL Urine Occult Blood NEGATIVE (NEGATIVE) Urine Nitrite NEGATIVE (NEGATIVE) Urine Bilirubin NEGATIVE (NEGATIVE) Urine Urobilinogen 0.2 (<2.0) EU/dL Ur Leukocyte Esterase NEGATIVE (NEGATIVE) Urine RBC NONE SEEN (0-2/HPF) Urine WBC 0-1 (0-5/HPF) Ur Epithelial Cells RARE (NONE-FEW) Amorphous Sediment RARE (NEGATIVE) Urine Bacteria RARE (NEGATIVE) Departure - Departure Time of Disposition: 17:18 Disposition: Home, Self-Care 01 Condition: Good Clinical Impression: Bright red blood per rectum - Discharge Information Referrals: PCP,None [Primary Care Provider] - Forms: ED Department Discharge Additional Instructions: Return if symptoms persist or worsen or new concerning symptoms develop Follow-up with primary care in one week for recheck [facility] [address] [place] [id number] The following information is given to patients seen in the emergency department who are being discharged to home. This information is to outline your options for follow-up care. We provide all patients seen in our emergency department with a follow-up referral. The need for follow-up, as well as the timing and circumstances, are variable depending upon the specifics of your emergency department visit. If you don't have a primary care physician on staff, we will provide you with a referral. We always advise you to contact your personal physician following an emergency department visit to inform them of the circumstance of the visit and for follow-up with them and/or the need for any referrals to a consulting specialist. The emergency department will also refer you to a specialist when appropriate. This referral assures that you have the opportunity for follow-up care with a specialist. All of these measure are taken in an effort to provide you with optimal care, which includes your follow-up. Under all circumstances we always encourage you to contact your private physician who remains a resource for coordinating your care. When calling for follow-up care, please make the office aware that this follow-up is from your recent emergency room visit. If for any reason you are refused follow-up, please contact the [facility] emergency department at and asked to speak to the emergency department charge nurse. - My Orders Last 24 Hours: My Active Orders 03/26/18 16:10 UA W/MICROSCOPIC [URIN] Stat 03/26/18 16:11 Abdomen 2V AP Flat Upright [CR] Stat - Assessment/Plan Last 24 Hours: My Active Orders 03/26/18 16:10 UA W/MICROSCOPIC [URIN] Stat 03/26/18 16:11 Abdomen 2V AP Flat Upright [CR] Stat
[2018-03-26 15:49] LABS: CHLORIDE,CL 102 mmol/L (98-107); SODIUM,NA 137 mmol/L (136-145)
[2018-03-26 18:03] VITALS: BP 144/87
--- NOTE | 2018-03-27 07:49 | CR ---
EXAM DATE: 03/26/18 PATIENT'S AGE: 42 Patient: ROGER MONTIEL Facility: [place], [place] Site . Site : 1975 Study: XRay Abdomen [id number]/13/2018 4:40:25 PM Ordering Physician: Mary Bean Final Report: INDICATION: PAIN TECHNIQUE: Abdomen 4 view COMPARISON: None FINDINGS: Bowel: Nonobstructive bowel gas pattern. Moderate amount of stool.. Soft tissues: Cholecystectomy clips within the right upper quadrant. No sign of soft tissue mass. No suspicious calcifications. Bones: Unremarkable for age. IMPRESSION: Nonobstructive bowel gas pattern. Moderate amount of stool. Dictated by Сергей Pineda MD @ 03/26/2018 4:44:19 PM Dictated by: Сергей Pineda MD @ 03/26/2018 16:45:54 (Electronic Signature) Report Signed by Proxy. MTDNando
== END 2018-03-26 17:45 | disposition home or self-care (01) ==
LOC: MW.ED 14:02
DX: K62.5 Hemorrhage of anus and rectum (principal); Z91.011 Allergy to milk products; Z88.8 Allergy status to other drugs, medicaments and biological substances; Z91.030 Bee allergy status; Z79.899 Other long term (current) drug therapy; Z87.891 Personal history of nicotine dependence
CPT/HCPCS: 36415; 74019; 74019-26; 80053; 81001; 85025; 85610; 99283; 99284

== ENCOUNTER 2018-11-05 08:20 | Emergency (ER) | payer BC ==
--- NOTE | 2018-11-05 08:38 | EDM.PDOC ---
ED HPI GENERAL MEDICAL PROBLEM - General Chief Complaint: Diabetic Complaint Stated Complaint: HIGH BLOOD SUGAR LEVELS Time Seen by Provider: 11/05/18 08:35 - History of Present Illness INITIAL COMMENTS - FREE TEXT/NARRATIVE: HISTORY AND PHYSICAL: History of present illness: Patient is a 43-year-old white female with history of vfg-twyrhmi-njygvfsck diabetes was had episodes of reactive hypoglycemia and had an episode of blood sugar that went from 400-220 relatively abruptly is brought here by colleague for medical screening exam patient states she feels fine and is now outside the spectrum of episode she's had in the past and is managed accordingly 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 Review of systems: As per history of present illness and below otherwise all systems reviewed and negative. Past medical history: As per history of present illness and as reviewed below otherwise noncontributory. Surgical history: As per history of present illness and as reviewed below otherwise noncontributory. Social history: No reported history of drug or alcohol abuse. Family history: As per history of present illness and as reviewed below otherwise noncontributory. Physical exam: HEENT: Atraumatic, normocephalic, pupils reactive, negative for conjunctival pallor or scleral icterus, mucous membranes moist, throat clear, neck supple, nontender, trachea midline. Lungs: Clear to auscultation, breath sounds equal bilaterally, chest nontender. Heart: S1S2, regular, negative for clicks, rubs, or JVD. Abdomen: Soft, nondistended, nontender. Negative for masses or hepatosplenomegaly. Negative for costovertebral tenderness. Pelvis: Stable nontender. Genitourinary: Deferred. Rectal: Deferred. Extremities: Atraumatic, negative for cords or calf pain. Neurovascular unremarkable. Neuro: Awake, alert, oriented. Cranial nerves II through XII unremarkable. Cerebellum unremarkable. Motor and sensory unremarkable throughout. Exam nonfocal. Diagnostics: Accu-Chek Therapeutics: None Impression: 1 medical screening exam over 2 history of non-insulin dependent diabetes Definitive disposition and diagnosis as appropriate pending reevaluation and review of above. - Related Data Allergies Allergy/AdvReac Type Severity Reaction Status Date / Time gluten Allergy Other Verified 11/05/18 08:27 milk Allergy Other Verified 11/05/18 08:27 NSAIDS (Non-Steroidal Allergy gastric Verified 11/05/18 08:27 Anti-Inflamma bypass surgery bee stings Allergy Anaphylactic Uncoded 03/26/18 14:11 Shock Home Meds: Home Meds DULoxetine [Cymbalta] 60 mg PO DAILY 12/24/16 [History] Docusate Sodium [Colace] 1 tab PO BID PRN 12/24/16 [History] EPINEPHrine [Epipen 2-Dennis] 1 injection SUBCUT ASDIRECTED PRN 12/24/16 [History] Metoclopramide HCl 5 mg PO TID 12/24/16 [History] Omeprazole 20 mg PO DAILY 12/24/16 [History] Pregabalin [Lyrica] 75 mg PO BID 01/10/18 [History] Pregabalin [Lyrica] 150 mg PO BEDTIME 01/10/18 [History] traMADol [Ultram] 50 mg PO DAILY PRN 01/10/18 [History] Milnacipran HCl [Savella] 50 mg PO BID 11/05/18 [History] Mirtazapine [Remeron] 5 mg PO DAILY 11/05/18 [History] cloNIDine HCl [Clonidine HCl ER] 0.1 mg PO DAILY 11/05/18 [History] Past Medical History - Past Health History Medical/Surgical History: Denies Medical/Surgical History HEENT History: Reports: Impaired Vision, Other (See Below) Other HEENT History: uses reading glasses, hx of fx nose Cardiovascular History: Reports: None Respiratory History: Reports: Asthma Other Respiratory History: sports induced asthma Gastrointestinal History: Reports: GERD, Irritable Bowel Syndrome Genitourinary History: Reports: Renal Calculus Other Genitourinary History: hx kidney stones [employer] History: Reports: Musculoskeletal History: Reports: Back Pain, Chronic, Fibromyalgia, Osteoarthritis Neurological History: Reports: Concussion, Other (See Below) Other Neuro History: hx of motion sickness Psychiatric History: Reports: Anxiety, Depression Endocrine/Metabolic History: Reports: Obesity/BMI 30+ Other Endocrine/Metabolic History: 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 (blood sugar goes down when she eats) Hematologic History: Reports: None Immunologic History: Reports: None Oncologic (Cancer) History: Reports: None Dermatologic History: Reports: Psoriasis - Infectious Disease History Infectious Disease History: Reports: Chicken Pox - Past Surgical History Head Surgeries/Procedures: Reports: None HEENT Surgical History: Reports: Myringotomy w Tube(s) Cardiovascular Surgical History: Reports: None Respiratory Surgical History: Reports: None GI Surgical History: Reports: Bariatric Procedure, Cholecystectomy, EGD Female Surgical History: Reports: Cystectomy Endocrine Surgical History: Reports: None Neurological Surgical History: Reports: None Musculoskeletal Surgical History: Reports: Arthroscopic Knee, Knee Replacement Oncologic Surgical History: Reports: None Dermatological Surgical History: Reports: None Social & Family History - Family History Family Medical History: Noncontributory - Tobacco Use Smoking Status *Q: Current Every Day Smoker Years of Tobacco use: 1 Packs/Tins Daily: 1 - Caffeine Use Caffeine Use: Reports: Coffee, Energy Drinks, Soda, Tea - Recreational Drug Use Recreational Drug Use: No ED ROS GENERAL - Review of Systems Review Of Systems: ROS reveals no pertinent complaints other than HPI. ED EXAM GENERAL NO PERIP PULSE - Physical Exam Exam: See Below (See dictation) Course - Vital Signs Last Recorded V/S: Last Vital Signs Temp 36.1 C 11/05/18 08:24 Pulse 88 11/05/18 08:24 Resp 18 11/05/18 08:24 BP 122/74 11/05/18 08:24 Pulse Ox 98 11/05/18 08:24 Departure - Departure Time of Disposition: 08:37 Disposition: Home, Self-Care 01 Condition: Good Clinical Impression: Encounter for medical screening examination, History of diabetes mellitus, type II - Discharge Information Referrals: Sherrie Hernandez DO [Primary Care Provider] - Additional Instructions: The following information is given to patients seen in the emergency department who are being discharged to home. This information is to outline your options for follow-up care. We provide all patients seen in our emergency department with a follow-up referral. The need for follow-up, as well as the timing and circumstances, are variable depending upon the specifics of your emergency department visit. If you don't have a primary care physician on staff, we will provide you with a referral. We always advise you to contact your personal physician following an emergency department visit to inform them of the circumstance of the visit and for follow-up with them and/or the need for any referrals to a consulting specialist. The emergency department will also refer you to a specialist when appropriate. This referral assures that you have the opportunity for followup care with a specialist. All of these measure are taken in an effort to provide you with optimal care, which includes your followup. Under all circumstances we always encourage you to contact your private physician who remains a resource for coordinating your care. When calling for followup care, please make the office aware that this follow-up is from your recent emergency room visit. If for any reason you are refused follow-up, please contact the [facility] emergency department at and asked to speak to the emergency department charge nurse. Medication as prescribed monitor blood sugar as discussed diet as discussed follow-up primary medical doctor as needed as discussed and return as needed as discussed
[2018-11-05 10:26] VITALS: BP 129/59
== END 2018-11-05 10:00 | disposition home or self-care (01) ==
LOC: MW.ED 08:20
DX: E11.9 Type 2 diabetes mellitus without complications (principal); E66.9 Obesity, unspecified; F41.9 Anxiety disorder, unspecified; F32.9 Major depressive disorder, single episode, unspecified; F17.210 Nicotine dependence, cigarettes, uncomplicated; Z96.22 Myringotomy tube(s) status; Z98.84 Bariatric surgery status; Z90.49 Acquired absence of other specified parts of digestive tract; Z91.011 Allergy to milk products; Z91.030 Bee allergy status; Z88.6 Allergy status to analgesic agent; Z88.8 Allergy status to other drugs, medicaments and biological substances; Z79.899 Other long term (current) drug therapy
CPT/HCPCS: 82962; 99283

== ENCOUNTER 2018-12-20 08:36 | Emergency (ER) | payer BC ==
[2018-12-20] MEDS ORDERED: diphenhydrAMINE 25 MG Cap PO ONE (08:50)
[2018-12-20] MEDS ORDERED: Bacitracin Oint 1 GM U/D Packet TOP ONE (08:51)
--- NOTE | 2018-12-20 08:52 | EDM.PDOC ---
ED HPI GENERAL MEDICAL PROBLEM - General Chief Complaint: Skin Complaint Stated Complaint: INFECTION ON RIGHT ARM Time Seen by Provider: 12/20/18 08:46 Source of Information: Reports: Patient History Limitations: Reports: No Limitations - History of Present Illness INITIAL COMMENTS - FREE TEXT/NARRATIVE: History of present illness: []She awoke with itching on her right shoulder with redness and a blister. She denies any trauma or loo. Review of systems: As per history of present illness and below otherwise all systems reviewed and negative. Past medical history: As per history of present illness and as reviewed below otherwise noncontributory. Surgical history: As per history of present illness and as reviewed below otherwise noncontributory. Social history: No reported history of drug or alcohol abuse. Family history: As per history of present illness and as reviewed below otherwise noncontributory. Physical exam: General: Well developed, well nourished in NAD HEENT: Atraumatic, normocephalic, pupils reactive, negative for conjunctival pallor or scleral icterus, mucous membranes moist, throat clear, neck supple, nontender, trachea midline. Lungs: Clear to auscultation, breath sounds equal bilaterally, chest nontender. Heart: S1S2, regular, negative for clicks, rubs, or JVD. Abdomen: NABS, Soft, nondistended, nontender. Negative for masses or hepatosplenomegaly. Negative for costovertebral tenderness. Pelvis: Stable nontender. Genitourinary: Deferred. Rectal: Deferred. Extremities: Atraumatic, negative for cords or calf pain. Neurovascular unremarkable. Neuro: Awake, alert, oriented. Cranial nerves II through XII unremarkable. Cerebellum unremarkable. Motor and sensory unremarkable throughout. Exam nonfocal. Skin:warm and dry Diagnostics: None Therapeutics: Blister popped, wound cleaned, bacitracin placed and bandaged ED Course: Unremarkable Impression: Insect bite Prescriptions: None Plan: Wound clean, Neosporin to wound follow-up with primary care Benadryl for itching. Definitive disposition and diagnosis as appropriate pending reevaluation and review of above. - Related Data Allergies Allergy/AdvReac Type Severity Reaction Status Date / Time gluten Allergy Other Verified 12/20/18 08:42 milk Allergy Other Verified 12/20/18 08:42 NSAIDS (Non-Steroidal Allergy gastric Verified 03/09/19 08:42 Anti-Inflamma bypass surgery bee stings Allergy Anaphylactic Uncoded 03/26/18 14:11 Shock Home Meds: Home Meds DULoxetine [Cymbalta] 60 mg PO DAILY 12/24/16 [History] Docusate Sodium [Colace] 1 tab PO BID PRN 12/24/16 [History] EPINEPHrine [Epipen 2-Dennis] 1 injection SUBCUT ASDIRECTED PRN 12/24/16 [History] Metoclopramide HCl 5 mg PO TID 12/24/16 [History] Omeprazole 20 mg PO DAILY 12/24/16 [History] Pregabalin [Lyrica] 75 mg PO BID 01/10/18 [History] Pregabalin [Lyrica] 150 mg PO BEDTIME 01/10/18 [History] traMADol [Ultram] 50 mg PO DAILY PRN 01/10/18 [History] Milnacipran HCl [Savella] 50 mg PO BID 11/05/18 [History] Mirtazapine [Remeron] 5 mg PO DAILY 11/05/18 [History] cloNIDine HCl [Clonidine HCl ER] 0.1 mg PO DAILY 11/05/18 [History] Past Medical History - Past Health History Medical/Surgical History: Denies Medical/Surgical History HEENT History: Reports: Impaired Vision, Other (See Below) Other HEENT History: uses reading glasses, hx of fx nose Cardiovascular History: Reports: None Respiratory History: Reports: Asthma Other Respiratory History: sports induced asthma Gastrointestinal History: Reports: GERD, Irritable Bowel Syndrome Genitourinary History: Reports: Renal Calculus Other Genitourinary History: hx kidney stones [employer]TER History: Reports: Musculoskeletal History: Reports: Back Pain, Chronic, Fibromyalgia, Osteoarthritis Neurological History: Reports: Concussion, Other (See Below) Other Neuro History: hx of motion sickness Psychiatric History: Reports: Anxiety, Depression Endocrine/Metabolic History: Reports: Obesity/BMI 30+ Other Endocrine/Metabolic History: 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 (blood sugar goes down when she eats) Hematologic History: Reports: None Immunologic History: Reports: None Oncologic (Cancer) History: Reports: None Dermatologic History: Reports: Psoriasis - Infectious Disease History Infectious Disease History: Reports: Chicken Pox - Past Surgical History Head Surgeries/Procedures: Reports: None HEENT Surgical History: Reports: Myringotomy w Tube(s) Cardiovascular Surgical History: Reports: None Respiratory Surgical History: Reports: None GI Surgical History: Reports: Bariatric Procedure, Cholecystectomy, EGD Female Surgical History: Reports: Cystectomy Endocrine Surgical History: Reports: None Neurological Surgical History: Reports: None Musculoskeletal Surgical History: Reports: Arthroscopic Knee, Knee Replacement Oncologic Surgical History: Reports: None Dermatological Surgical History: Reports: None Social & Family History - Family History Family Medical History: Noncontributory - Caffeine Use Caffeine Use: Reports: Coffee, Energy Drinks, Soda, Tea ED ROS GENERAL - Review of Systems Review Of Systems: ROS reveals no pertinent complaints other than HPI. ED EXAM, SKIN/RASH Exam: See Below (See history of present illness) Departure - Departure Time of Disposition: 08:51 Disposition: Home, Self-Care 01 Condition: Good Clinical Impression: Insect bite Qualifiers: Encounter type: initial encounter Site of insect bite: upper arm Laterality: right Qualified Code(s): S40.861A - Insect bite (nonvenomous) of right upper arm , initial encounter; W57.XXXA - Bitten or stung by nonvenomous insect and other nonvenomous arthropods, initial encounter - Discharge Information *PRESCRIPTION DRUG MONITORING PROGRAM REVIEWED*: No *COPY OF PRESCRIPTION DRUG MONITORING REPORT IN PATIENT TRISH: No Referrals: Yan Tucker MD [Primary Care Provider] - Additional Instructions: The following information is given to patients seen in the emergency department who are being discharged to home. This information is to outline your options for follow-up care. We provide all patients seen in our emergency department with a follow-up referral. The need for follow-up, as well as the timing and circumstances, are variable depending upon the specifics of your emergency department visit. If you don't have a primary care physician on staff, we will provide you with a referral. We always advise you to contact your personal physician following an emergency department visit to inform them of the circumstance of the visit and for follow-up with them and/or the need for any referrals to a consulting specialist. The emergency department will also refer you to a specialist when appropriate. This referral assures that you have the opportunity for follow-up care with a specialist. All of these measure are taken in an effort to provide you with optimal care, which includes your follow-up. Under all circumstances we always encourage you to contact your private physician who remains a resource for coordinating your care. When calling for follow-up care, please make the office aware that this follow-up is from your recent emergency room visit. If for any reason you are refused follow-up, please contact the [facility] Emergency Department at and asked to speak to the emergency department charge nurse. Take meds as directed, follow up with your primary care physician, return to ER if symptoms worsen or change. [facility] [address] [place] [id number]
[2018-12-20 11:20] VITALS: BP 107/60
== END 2018-12-20 09:10 | disposition home or self-care (01) ==
LOC: MW.ED 08:36
DX: S40.861A Insect bite (nonvenomous) of right upper arm, initial encounter (principal); K21.9 Gastro-esophageal reflux disease without esophagitis; F41.9 Anxiety disorder, unspecified; F32.9 Major depressive disorder, single episode, unspecified; Z79.899 Other long term (current) drug therapy; Z91.030 Bee allergy status; Z91.018 Allergy to other foods; Z91.011 Allergy to milk products; Z88.8 Allergy status to other drugs, medicaments and biological substances; W57.XXXA Bitten or stung by nonvenomous insect and other nonvenomous arthropods, initial encounter
CPT/HCPCS: 99282; A9270